=== PATIENT | female | born 1940 | race Asian ===

== ENCOUNTER 2016-04-18 00:55 | Inpatient (IN) | payer OTHER, MEDICAID ==
[~2016-04-18] VITALS: Ht 154.9 cm; Wt 55.1 kg
[~2016-04-18 00:55] MED LIST: AMLO2.5T2 PO; AUD NEB; BACID PO; CARV6.2534 PO; INSLAN SQ; INSNOV SQ; IPRNEB IH; MYCO500T PO; PRED5 PO; SIMV20TA6 PO; TACR1CAP PO
[2016-04-18] MEDS ORDERED: FAMO20 PO (01:04)
[2016-04-18] MEDS ORDERED: CALC600T95 PO (01:04)
[2016-04-18] MEDS ORDERED: TAMS0.4C32 PO (01:04)
[2016-04-18] MEDS ORDERED: FURO20 PO (01:04)
[2016-04-18] MEDS ORDERED: TACR1 PO (01:04)
[2016-04-18] MEDS ORDERED: LORazepam 2 MG/ML VIAL IVP ONE (01:15)
[2016-04-18] MEDS ORDERED: LORazepam 2 MG/ML VIAL ONE (01:15)
[2016-04-18] MEDS ORDERED: SODIUM CHLORIDE 0.9% 1,000 ML IV ONE (01:30)
[2016-04-18] MEDS ORDERED: INSULIN REGULAR, HUMAN 100 UNITS/ML IVP ONE (01:30)
[2016-04-18 01:51] LABS: BASOPHILS # (AUTO) 0.03 K/uL (0.00-0.20); BASOPHILS % (AUTO) 0.5 % (0.0-2.0); EOSINOPHILS # (AUTO) 0.04 K/uL (0.00-0.70); EOSINOPHILS % (AUTO) 0.59 % (1.0-6.0); HEMATOCRIT 30.6 % (36-46); LYMPHOCYTES # (AUTO) 2.6 K/uL (1.0-4.8); LYMPHOCYTES % (AUTO) 43.4 % (22.0-44.0); MEAN CORPUSCULAR HEMOGLOBIN 25.3 pg (26.0-34.0); MEAN CORPUSCULAR HGB CONC 32.5 G/dL (31.0-37.0); MEAN CORPUSCULAR VOLUME 78 fL (80-100); MONOCYTES # (AUTO) 0.5 K/uL (0.1-1.0); MONOCYTES % (AUTO) 7.5 % (2.0-9.0); NEUTROPHILS # (AUTO) 2.9 K/uL (1.8-7.7); NEUTROPHILS % (AUTO) 48.1 % (40.0-70.0); PLATELET COUNT (AUTO) 122 K/uL (150-450); RED BLOOD CELL COUNT(AUTO) 3.94 MIL/uL (4.00-5.20); RED CELL DISTRIBUTION WIDTH 17.2 % (11.5-14.5)
[2016-04-18 01:52] LABS: PROTHROMBIN TIME 10.8 SEC (9.4-11.6)
[2016-04-18 01:57] LABS: BILIRUBIN,TOTAL 0.2 mg/dL (0.1-1.0); CALCIUM, TOTAL 7.8 mg/dL (8.8-10.5); CREATININE 1.98 mg/dL (0.60-1.30); POTASSIUM 3.7 mmol/L (3.5-5.1); TOTAL PROTEIN, SERUM 7.1 g/dL (6.4-8.2)
[2016-04-18] MEDS ORDERED: SODIUM CHLORIDE 0.9% 100 ML ONE (02:09)
[2016-04-18] MEDS ORDERED: IOVERSOL 350 MG/ML 100 ML VIAL ONE (02:09)
[2016-04-18] MEDS ORDERED: ONDANSETRON HCL 4 MG/2 ML VIAL IVP PRN ×2 (02:15→06:15)
[2016-04-18] MEDS ORDERED: ASPIRIN 325 MG TABLET PO ONE (02:15)
[2016-04-18] MEDS ORDERED: ALTEPLASE IV ONE ×2 (02:30)
[2016-04-18] MEDS ORDERED: WATER FOR INJECTION STERILE IV ONE ×2 (02:30)
[2016-04-18 03:06] LABS: GLUCOSE,POINT OF CARE 129 MG/DL (70-110)
[2016-04-18 04:00] VITALS: BP 141/56
[2016-04-18] MEDS ORDERED: 0.9% SODIUM CHLORIDE 10 ML SYRINGE IVP PRN (06:15)
[2016-04-18] MEDS ORDERED: NITROPRUSSIDE SODIUM 50 MG in DEXTROSE 5%-WATER 248 ML IV PRN ×4 (06:39)
[2016-04-18] MEDS ORDERED: LABETALOL HCL 5 MG/ML 20 ML VIAL IVP PRN ×3 (06:45→09:30)
[2016-04-18 08:00] VITALS: BP 169/80
[2016-04-18] MEDS: TAMSULOSIN HCL 0.4 MG CAPSULE PO SCH (09:00)
[2016-04-18] MEDS: AmLODIPine BESYLATE 10 MG TABLET PO SCH (09:00)
[2016-04-18] MEDS ORDERED: PredniSONE 5 MG TABLET PO SCH (09:00)
[2016-04-18] MEDS: DOCUSATE SODIUM 100 MG CAPSULE PO SCH ×2 (09:00→20:16)
[2016-04-18] MEDS: LACTOBAC ACID/BULG/BIFID/THERM TABLET PO SCH (09:00)
[2016-04-18] MEDS ORDERED: TACROLIMUS ANHYDROUS 1 MG CAPSULE PO SCH ×2 (09:00)
[2016-04-18] MEDS: TACROLIMUS ANHYDROUS 1 MG CAPSULE PO SCH ×2 (09:45→20:16)
[2016-04-18] MEDS: MethylPREDNISolone SOD SUCC 40 MG/ML VIAL IVP SCH ×2 (10:43→21:46)
[2016-04-18] MEDS: PANTOPRAZOLE SODIUM 40 MG/VIAL IVP SCH (10:43)
[2016-04-18] MEDS ORDERED: AMLO-512 PO (10:49)
[2016-04-18] MEDS: LORazepam 2 MG/ML VIAL IVP PRN (11:21)
[2016-04-18 11:28] LABS: CHOL/HDL RATIO 1.6 (3.9-5.7); THYROID STIMULATING HORMONE 0.89 uIU/mL (0.36-3.74)
[2016-04-18 12:15] VITALS: BP 131/67
[2016-04-18] MEDS: INSULIN ASPART 100 UNITS/ML SQ PRN ×2 (12:38→18:18)
[2016-04-18] MEDS ORDERED: ACETAMINOPHEN 650 MG RECTAL SUPPOSITORY PR PRN (14:00)
[2016-04-18 14:37] LABS: GLUCOSE,POINT OF CARE 220 MG/DL (70-110)
[2016-04-18 14:37] LABS: GLUCOSE,POINT OF CARE 80 MG/DL (70-110)
[2016-04-18 14:37] LABS: GLUCOSE,POINT OF CARE 267 MG/DL (70-110)
[2016-04-18] MEDS: SODIUM CHLORIDE 0.45% 1,000 ML IV SCH (15:24)
[2016-04-18 16:00] VITALS: BP 153/62
[2016-04-18 16:52] LABS: APPEARANCE,URINE CLOUDY (CLEAR); GLUCOSE, URINE (UA) 100 mg/dL (NEGATIVE); KETONES,URINE NEGATIVE (NEGATIVE); LEUKOCYTE ESTERASE ,URINE NEGATIVE (NEGATIVE); OCCULT BLOOD,URINE MODERATE (NEGATIVE); PH,URINE 7.5 (5.0-8.0); PROTEIN,URINE SEE CONFIRM (NEGATIVE)
[2016-04-18 17:01] LABS: SULFOSALICYLIC ACID,URINE 3+ (Negative)
[2016-04-18 17:02] LABS: SQUAMOUS EPITHELIAL CELL,UR Few /LPF (None Seen)
[2016-04-18 20:00] VITALS: BP 133/59
[2016-04-18] MEDS: SIMVASTATIN 20 MG TABLET PO SCH (20:16)
[2016-04-18 20:26] LABS: GLUCOSE,POINT OF CARE 228 MG/DL (70-110)
[2016-04-18] MEDS: INSULIN DETEMIR 100 UNITS/ML SQ SCH ×2 (21:00→22:48)
[2016-04-19] VITALS: BP 146/55
[2016-04-19] MEDS: ACETAMINOPHEN 325 MG TABLET PO PRN ×3 (00:22→17:38)
[2016-04-19] MEDS: INSULIN ASPART 100 UNITS/ML SQ PRN ×3 (00:52→17:39)
[2016-04-19 03:02] LABS: GLUCOSE COMMENT 1 Received Meds; GLUCOSE,POINT OF CARE 209 MG/DL (70-110)
[2016-04-19 03:02] LABS: GLUCOSE,POINT OF CARE 188 MG/DL (70-110)
[2016-04-19 04:00] VITALS: BP 151/56
[2016-04-19 05:22] LABS: CALCIUM, TOTAL 8.8 mg/dL (8.8-10.5); CREATININE 1.68 mg/dL (0.60-1.30); POTASSIUM 4.3 mmol/L (3.5-5.1)
[2016-04-19 06:09] LABS: EOSINOPHILS % (AUTO) 0 % (1.0-6.0); HEMATOCRIT 35.6 % (36-46); HEMOGLOBIN 11.3 g/dL (12.0-16.0); LYMPHOCYTES # (AUTO) 1.9 K/uL (1.0-4.8); LYMPHOCYTES % (AUTO) 18.7 % (22.0-44.0); MEAN CORPUSCULAR HGB CONC 31.7 G/dL (31.0-37.0); MEAN CORPUSCULAR VOLUME 79 fL (80-100); MONOCYTES # (AUTO) 0.1 K/uL (0.1-1.0); MONOCYTES % (AUTO) 0.7 % (2.0-9.0); NEUTROPHILS % (AUTO) 80.6 % (40.0-70.0); PLATELET COUNT (AUTO) 146 K/uL (150-450); RED CELL DISTRIBUTION WIDTH 17.4 % (11.5-14.5)
[2016-04-19 08:00] VITALS: BP 150/47
[2016-04-19] MEDS: PANTOPRAZOLE SODIUM 40 MG/VIAL IVP SCH (09:22)
[2016-04-19] MEDS: MethylPREDNISolone SOD SUCC 40 MG/ML VIAL IVP SCH ×2 (09:23→20:35)
[2016-04-19] MEDS: DOCUSATE SODIUM 100 MG CAPSULE PO SCH ×2 (09:23→20:33)
[2016-04-19] MEDS: AmLODIPine BESYLATE 10 MG TABLET PO SCH (09:23)
[2016-04-19] MEDS: TAMSULOSIN HCL 0.4 MG CAPSULE PO SCH (09:23)
[2016-04-19] MEDS: TACROLIMUS ANHYDROUS 1 MG CAPSULE PO SCH ×2 (09:23→20:33)
[2016-04-19] MEDS: LACTOBAC ACID/BULG/BIFID/THERM TABLET PO SCH (09:23)
[2016-04-19 10:58] LABS: RBC MORPHOLOGY COMMENT ABNORMAL RBC MORPH
[2016-04-19] MEDS: SODIUM CHLORIDE 0.45% 1,000 ML IV SCH (11:47)
[2016-04-19 12:00] VITALS: BP 140/48
[2016-04-19 16:00] VITALS: BP 124/52
[2016-04-19 19:27] LABS: GLUCOSE COMMENT 1 Received Meds; GLUCOSE,POINT OF CARE 146 MG/DL (70-110)
[2016-04-19 19:27] LABS: GLUCOSE,POINT OF CARE 113 MG/DL (70-110)
[2016-04-19 20:00] VITALS: BP 131/59
[2016-04-19] MEDS: SIMVASTATIN 20 MG TABLET PO SCH (20:35)
[2016-04-19] MEDS: INSULIN DETEMIR 100 UNITS/ML SQ SCH (20:38)
[2016-04-19] MEDS ORDERED: LORazepam 2 MG/ML VIAL IVP ONE (21:30)
[2016-04-20] VITALS: BP 109/74
[2016-04-20 04:00] VITALS: BP 112/70
[2016-04-20 05:58] LABS: EOSINOPHILS % (AUTO) 0.1 % (1.0-6.0); HEMATOCRIT 36.2 % (36-46); HEMOGLOBIN 11.4 g/dL (12.0-16.0); LYMPHOCYTES # (AUTO) 1.6 K/uL (1.0-4.8); MEAN CORPUSCULAR HEMOGLOBIN 25.2 pg (26.0-34.0); MEAN CORPUSCULAR HGB CONC 31.7 G/dL (31.0-37.0); MEAN CORPUSCULAR VOLUME 80 fL (80-100); MONOCYTES # (AUTO) 0.2 K/uL (0.1-1.0); MONOCYTES % (AUTO) 2.6 % (2.0-9.0); NEUTROPHILS # (AUTO) 7.4 K/uL (1.8-7.7); NEUTROPHILS % (AUTO) 80.3 % (40.0-70.0); PLATELET COUNT (AUTO) 111 K/uL (150-450); RED BLOOD CELL COUNT(AUTO) 4.55 MIL/uL (4.00-5.20); RED CELL DISTRIBUTION WIDTH 17.4 % (11.5-14.5); WHITE BLOOD COUNT (AUTO) 9.2 K/uL (4.5-11.0)
[2016-04-20 06:43] LABS: RBC MORPHOLOGY COMMENT ABNORMAL RBC MORPH
[2016-04-20 06:47] LABS: GLUCOSE COMMENT 1 Received Meds; GLUCOSE,POINT OF CARE 130 MG/DL (70-110)
[2016-04-20 06:47] LABS: GLUCOSE COMMENT 1 Received Meds; GLUCOSE,POINT OF CARE 149 MG/DL (70-110)
[2016-04-20 06:55] LABS: CALCIUM, TOTAL 8.5 mg/dL (8.8-10.5); CREATININE 1.56 mg/dL (0.60-1.30); POTASSIUM 4.2 mmol/L (3.5-5.1)
[2016-04-20] MEDS: INSULIN ASPART 100 UNITS/ML SQ PRN ×3 (07:36→21:32)
[2016-04-20] MEDS: SODIUM CHLORIDE 0.45% 1,000 ML IV SCH (07:55)
[2016-04-20 08:00] VITALS: BP 92/71
[2016-04-20] MEDS: MethylPREDNISolone SOD SUCC 40 MG/ML VIAL IVP SCH ×2 (08:01→21:30)
[2016-04-20] MEDS: PANTOPRAZOLE SODIUM 40 MG/VIAL IVP SCH (08:01)
[2016-04-20] MEDS: LACTOBAC ACID/BULG/BIFID/THERM TABLET PO SCH (08:01)
[2016-04-20] MEDS: TAMSULOSIN HCL 0.4 MG CAPSULE PO SCH (08:01)
[2016-04-20] MEDS: TACROLIMUS ANHYDROUS 1 MG CAPSULE PO SCH ×2 (08:02→21:29)
[2016-04-20] MEDS: AmLODIPine BESYLATE 10 MG TABLET PO SCH (08:02)
[2016-04-20] MEDS: DOCUSATE SODIUM 100 MG CAPSULE PO SCH ×2 (08:02→21:29)
[2016-04-20] MEDS ORDERED: LORazepam 2 MG/ML VIAL IVP ONE (10:00)
[2016-04-20 12:00] VITALS: BP 119/63
[2016-04-20 16:00] VITALS: BP 96/59
[2016-04-20 17:02] LABS: GLUCOSE,POINT OF CARE 151 MG/DL (70-110)
[2016-04-20 18:27] LABS: GLUCOSE,POINT OF CARE 122 MG/DL (70-110)
[2016-04-20 20:00] VITALS: BP 138/69
[2016-04-20] MEDS: SIMVASTATIN 20 MG TABLET PO SCH (21:29)
[2016-04-20] MEDS: INSULIN DETEMIR 100 UNITS/ML SQ SCH (21:35)
[2016-04-21] VITALS (7 sets, daily range): BP systolic 95–123; BP diastolic 51–77
[2016-04-21] MEDS: SODIUM CHLORIDE 0.45% 1,000 ML IV SCH (05:00)
[2016-04-21] MEDS: INSULIN ASPART 100 UNITS/ML SQ PRN ×4 (06:01→20:27)
[2016-04-21 08:07] LABS: GLUCOSE COMMENT 1 Received Meds; GLUCOSE,POINT OF CARE 187 MG/DL (70-110)
[2016-04-21 08:07] LABS: GLUCOSE COMMENT 1 Received Meds; GLUCOSE,POINT OF CARE 254 MG/DL (70-110)
[2016-04-21] MEDS: PANTOPRAZOLE SODIUM 40 MG/VIAL IVP SCH (08:32)
[2016-04-21] MEDS: LACTOBAC ACID/BULG/BIFID/THERM TABLET PO SCH (08:32)
[2016-04-21] MEDS: TACROLIMUS ANHYDROUS 1 MG CAPSULE PO SCH ×2 (08:33→20:14)
[2016-04-21] MEDS: DOCUSATE SODIUM 100 MG CAPSULE PO SCH ×2 (08:33→20:14)
[2016-04-21] MEDS: TAMSULOSIN HCL 0.4 MG CAPSULE PO SCH (08:33)
[2016-04-21] MEDS: AmLODIPine BESYLATE 10 MG TABLET PO SCH (08:33)
[2016-04-21] MEDS: MethylPREDNISolone SOD SUCC 40 MG/ML VIAL IVP SCH ×2 (08:37→20:24)
[2016-04-21] MEDS: SIMVASTATIN 20 MG TABLET PO SCH (20:14)
[2016-04-21] MEDS: INSULIN DETEMIR 100 UNITS/ML SQ SCH (20:27)
[2016-04-21] MEDS ORDERED: LABETALOL HCL 5 MG/ML 20 ML VIAL IVP PRN (21:45)
[2016-04-22] MEDS: SODIUM CHLORIDE 0.45% 1,000 ML IV SCH (00:11)
[2016-04-22] MEDS: MAGNESIUM HYDROXIDE SUSPENSION 30 ML UDCUP PO PRN (04:38)
[2016-04-22 04:52] VITALS: BP 121/70
[2016-04-22] MEDS: INSULIN ASPART 100 UNITS/ML SQ PRN ×4 (05:53→20:50)
[2016-04-22 07:16] VITALS: BP 119/62
[2016-04-22] MEDS: PANTOPRAZOLE SODIUM 40 MG/VIAL IVP SCH (08:45)
[2016-04-22] MEDS: MethylPREDNISolone SOD SUCC 40 MG/ML VIAL IVP SCH ×2 (08:45→20:43)
[2016-04-22] MEDS: TAMSULOSIN HCL 0.4 MG CAPSULE PO SCH (08:46)
[2016-04-22] MEDS: AmLODIPine BESYLATE 10 MG TABLET PO SCH (08:46)
[2016-04-22] MEDS: TACROLIMUS ANHYDROUS 1 MG CAPSULE PO SCH ×2 (08:46→20:37)
[2016-04-22] MEDS: DOCUSATE SODIUM 100 MG CAPSULE PO SCH ×2 (08:46→20:37)
[2016-04-22 10:58] VITALS: BP 126/68
[2016-04-22] MEDS: LACTOBAC ACID/BULG/BIFID/THERM TABLET PO SCH (12:18)
[2016-04-22 15:30] VITALS: BP 131/69
[2016-04-22 17:33] LABS: GLUCOSE COMMENT 1 Received Meds; GLUCOSE,POINT OF CARE 196 MG/DL (70-110)
[2016-04-22] MEDS ORDERED: INSULIN ASPART 100 UNITS/ML SQ ONE (18:30)
[2016-04-22 19:04] VITALS: BP 115/60
[2016-04-22] MEDS: SIMVASTATIN 20 MG TABLET PO SCH (20:37)
[2016-04-22] MEDS: MUPIROCIN CALCIUM 2% 22 GM OINTMENT NASAL SCH (20:43)
[2016-04-22] MEDS: INSULIN DETEMIR 100 UNITS/ML SQ SCH (20:48)
[2016-04-22 23:28] VITALS: BP 128/69
[2016-04-23] MEDS: INSULIN ASPART 100 UNITS/ML SQ PRN ×2 (06:03→11:28)
[2016-04-23 06:17] VITALS: BP 129/68
[2016-04-23 07:25] VITALS: BP 145/74
[2016-04-23 07:42] LABS: GLUCOSE COMMENT 1 Received Meds; GLUCOSE,POINT OF CARE 288 MG/DL (70-110)
[2016-04-23] MEDS: TAMSULOSIN HCL 0.4 MG CAPSULE PO SCH (08:15)
[2016-04-23] MEDS: TACROLIMUS ANHYDROUS 1 MG CAPSULE PO SCH ×2 (08:15→19:59)
[2016-04-23] MEDS: DOCUSATE SODIUM 100 MG CAPSULE PO SCH ×2 (08:15→21:00)
[2016-04-23] MEDS: LACTOBAC ACID/BULG/BIFID/THERM TABLET PO SCH (08:15)
[2016-04-23] MEDS: MethylPREDNISolone SOD SUCC 40 MG/ML VIAL IVP SCH (08:15)
[2016-04-23] MEDS: AmLODIPine BESYLATE 10 MG TABLET PO SCH (08:15)
[2016-04-23] MEDS: PANTOPRAZOLE SODIUM 40 MG/VIAL IVP SCH (08:20)
[2016-04-23] MEDS: MUPIROCIN CALCIUM 2% 22 GM OINTMENT NASAL SCH ×2 (08:21→21:11)
[2016-04-23 08:57] LABS: GLUCOSE COMMENT 1 Received Meds; GLUCOSE,POINT OF CARE 359 MG/DL (70-110)
[2016-04-23 08:57] LABS: GLUCOSE COMMENT 1 Received Meds; GLUCOSE,POINT OF CARE 159 MG/DL (70-110)
[2016-04-23 11:26] VITALS: BP 132/70
[2016-04-23 15:17] VITALS: BP 116/59
[2016-04-23] MEDS ORDERED: INSULIN ASPART 100 UNITS/ML SQ PRN (17:30)
[2016-04-23] MEDS ORDERED: INSULIN ASPART 100 UNITS/ML SQ ONE ×2 (17:45→18:45)
[2016-04-23] MEDS: MAGNESIUM HYDROXIDE SUSPENSION 30 ML UDCUP PO PRN (18:22)
[2016-04-23 19:09] LABS: HEMOGLOBIN A1C 11.4 % (4.5-6.2)
[2016-04-23 19:22] LABS: THYROID STIMULATING HORMONE 1.76 uIU/mL (0.36-3.74)
[2016-04-23] MEDS: SIMVASTATIN 20 MG TABLET PO SCH (19:59)
[2016-04-23 20:53] VITALS: BP 137/70
[2016-04-23] MEDS: INSULIN DETEMIR 100 UNITS/ML SQ SCH (21:08)
[2016-04-23 23:24] VITALS: BP 112/52
[2016-04-24] VITALS (7 sets, daily range): BP systolic 105–157; BP diastolic 65–78
[2016-04-24] MEDS: DEXTROSE 50%-WATER 25 GM/50 ML SYRINGE IVP PRN (02:53)
[2016-04-24 07:33] LABS: GLUCOSE COMMENT 1 Repeated; GLUCOSE,POINT OF CARE 553 MG/DL (70-110)
[2016-04-24 07:33] LABS: GLUCOSE COMMENT 1 Repeated; GLUCOSE,POINT OF CARE 140 MG/DL (70-110)
[2016-04-24 07:33] LABS: GLUCOSE COMMENT 1 Received Meds; GLUCOSE,POINT OF CARE 392 MG/DL (70-110)
[2016-04-24 07:33] LABS: GLUCOSE COMMENT 1 Received Meds; GLUCOSE,POINT OF CARE 354 MG/DL (70-110)
[2016-04-24 07:52] LABS: CALCIUM, TOTAL 8.2 mg/dL (8.8-10.5); CREATININE 1.68 mg/dL (0.60-1.30); MAGNESIUM 3.4 mg/dL (1.80-2.40); POTASSIUM 4.6 mmol/L (3.5-5.1)
[2016-04-24] MEDS: MethylPREDNISolone SOD SUCC 40 MG/ML VIAL IVP SCH (08:14)
[2016-04-24] MEDS: ASPIRIN 81 MG EC TABLET PO SCH (08:14)
[2016-04-24] MEDS: LACTOBAC ACID/BULG/BIFID/THERM TABLET PO SCH (08:14)
[2016-04-24] MEDS: TACROLIMUS ANHYDROUS 1 MG CAPSULE PO SCH ×2 (08:15→21:39)
[2016-04-24] MEDS: TAMSULOSIN HCL 0.4 MG CAPSULE PO SCH (08:15)
[2016-04-24] MEDS: DOCUSATE SODIUM 100 MG CAPSULE PO SCH ×2 (08:15→21:39)
[2016-04-24] MEDS: MUPIROCIN CALCIUM 2% 22 GM OINTMENT NASAL SCH ×2 (08:15→21:40)
[2016-04-24] MEDS: PANTOPRAZOLE SODIUM 40 MG/VIAL IVP SCH (08:18)
[2016-04-24] MEDS: INSULIN DETEMIR 100 UNITS/ML SQ SCH ×2 (09:34→21:44)
[2016-04-24] MEDS: AmLODIPine BESYLATE 10 MG TABLET PO SCH (12:23)
[2016-04-24] MEDS: INSULIN ASPART 100 UNITS/ML SQ PRN ×3 (12:33→21:45)
[2016-04-24 20:12] LABS: GLUCOSE,POINT OF CARE 295 MG/DL (70-110)
[2016-04-24 20:12] LABS: GLUCOSE,POINT OF CARE 305 MG/DL (70-110)
[2016-04-24] MEDS: SIMVASTATIN 20 MG TABLET PO SCH (21:00)
[2016-04-24] MEDS: LORazepam 2 MG/ML VIAL IVP PRN (23:13)
[2016-04-25] VITALS (12 sets, daily range): BP systolic 115–149; BP diastolic 44–82
[2016-04-25] MEDS: LORazepam 2 MG/ML VIAL IVP PRN (05:27)
[2016-04-25 08:22] LABS: CALCIUM, TOTAL 8.4 mg/dL (8.8-10.5); CREATININE 1.55 mg/dL (0.60-1.30); MAGNESIUM 2.9 mg/dL (1.80-2.40); PHOSPHORUS 2.6 mg/dL (2.5-4.9); POTASSIUM 4.8 mmol/L (3.5-5.1)
[2016-04-25] MEDS: ASPIRIN 81 MG EC TABLET PO SCH (08:30)
[2016-04-25] MEDS: INSULIN DETEMIR 100 UNITS/ML SQ SCH ×2 (09:00→21:48)
[2016-04-25] MEDS: DOCUSATE SODIUM 100 MG CAPSULE PO SCH ×2 (09:00→21:20)
[2016-04-25] MEDS: DEXTROSE 50%-WATER 25 GM/50 ML SYRINGE IVP PRN (09:34)
[2016-04-25] MEDS: TACROLIMUS ANHYDROUS 1 MG CAPSULE PO SCH ×2 (09:39→21:20)
[2016-04-25] MEDS: LACTOBAC ACID/BULG/BIFID/THERM TABLET PO SCH (09:39)
[2016-04-25] MEDS: MethylPREDNISolone SOD SUCC 40 MG/ML VIAL IVP SCH (09:39)
[2016-04-25] MEDS: TAMSULOSIN HCL 0.4 MG CAPSULE PO SCH (09:40)
[2016-04-25] MEDS: PANTOPRAZOLE SODIUM 40 MG/VIAL IVP SCH (09:40)
[2016-04-25] MEDS: AmLODIPine BESYLATE 10 MG TABLET PO SCH (09:43)
[2016-04-25 11:06] LABS: GLUCOSE COMMENT 1 Doctor Notified; GLUCOSE,POINT OF CARE 299 MG/DL (70-110)
[2016-04-25 12:27] LABS: GLUCOSE COMMENT 1 Received Meds; GLUCOSE,POINT OF CARE 118 MG/DL (70-110)
[2016-04-25 13:13] LABS: GLUCOSE,POINT OF CARE 111 MG/DL (70-110)
[2016-04-25] MEDS: MUPIROCIN CALCIUM 2% 22 GM OINTMENT NASAL SCH ×2 (14:36→21:38)
[2016-04-25] MEDS: DEXTROSE 5%-0.45% SODIUM CHL 1,000 ML IV SCH (14:36)
[2016-04-25] MEDS: PredniSONE 5 MG TABLET PO SCH (15:07)
[2016-04-25] MEDS: INSULIN ASPART 100 UNITS/ML SQ PRN ×2 (18:09→21:49)
[2016-04-25 18:12] LABS: GLUCOSE COMMENT 1 Received Meds; GLUCOSE,POINT OF CARE 239 MG/DL (70-110)
[2016-04-25 21:02] LABS: GLUCOSE COMMENT 1 Received Meds; GLUCOSE,POINT OF CARE 300 MG/DL (70-110)
[2016-04-25] MEDS: SIMVASTATIN 20 MG TABLET PO SCH (21:20)
[2016-04-26 03:35] VITALS: BP 136/67
[2016-04-26 05:48] LABS: GLUCOSE COMMENT 1 Juice/Food/D50 Given; GLUCOSE,POINT OF CARE 91 MG/DL (70-110)
[2016-04-26] MEDS: INSULIN ASPART 100 UNITS/ML SQ PRN ×3 (06:21→17:47)
[2016-04-26 06:59] LABS: BASOPHILS % (AUTO) 0.1 % (0.0-2.0); EOSINOPHILS % (AUTO) 0.7 % (1.0-6.0); HEMATOCRIT 34.1 % (36-46); HEMOGLOBIN 10.8 g/dL (12.0-16.0); LYMPHOCYTES # (AUTO) 1.4 K/uL (1.0-4.8); LYMPHOCYTES % (AUTO) 10.9 % (22.0-44.0); MEAN CORPUSCULAR HEMOGLOBIN 25.5 pg (26.0-34.0); MEAN CORPUSCULAR HGB CONC 31.6 G/dL (31.0-37.0); MEAN CORPUSCULAR VOLUME 81 fL (80-100); MONOCYTES # (AUTO) 0.6 K/uL (0.1-1.0); NEUTROPHILS # (AUTO) 10.4 K/uL (1.8-7.7); NEUTROPHILS % (AUTO) 83.3 % (40.0-70.0); PLATELET COUNT (AUTO) 145 K/uL (150-450); RED BLOOD CELL COUNT(AUTO) 4.22 MIL/uL (4.00-5.20); RED CELL DISTRIBUTION WIDTH 17.2 % (11.5-14.5); WHITE BLOOD COUNT (AUTO) 12.5 K/uL (4.5-11.0)
[2016-04-26 07:07] LABS: CREATININE 1.54 mg/dL (0.60-1.30); PHOSPHORUS 3.4 mg/dL (2.5-4.9); POTASSIUM 5.6 mmol/L (3.5-5.1)
[2016-04-26 08:03] VITALS: BP 115/42
[2016-04-26] MEDS: DOCUSATE SODIUM 100 MG CAPSULE PO SCH (09:00)
[2016-04-26] MEDS ORDERED: ASPIRIN 81 MG CHEWABLE TABLET PO SCH (09:00)
[2016-04-26] MEDS ORDERED: SODIUM POLYSTYRENE SULFONATE 15 GM/60 ML SUSPENSION BOTTLE PO ONE (09:15)
[2016-04-26] MEDS: PANTOPRAZOLE SODIUM 40 MG/VIAL IVP SCH (09:37)
[2016-04-26] MEDS: LACTOBAC ACID/BULG/BIFID/THERM TABLET PO SCH (09:37)
[2016-04-26] MEDS: AmLODIPine BESYLATE 10 MG TABLET PO SCH (09:38)
[2016-04-26] MEDS: TAMSULOSIN HCL 0.4 MG CAPSULE PO SCH (09:38)
[2016-04-26] MEDS: PredniSONE 5 MG TABLET PO SCH (09:38)
[2016-04-26] MEDS: TACROLIMUS ANHYDROUS 1 MG CAPSULE PO SCH (09:38)
[2016-04-26] MEDS: INSULIN DETEMIR 100 UNITS/ML SQ SCH (09:40)
[2016-04-26] MEDS: MUPIROCIN CALCIUM 2% 22 GM OINTMENT NASAL SCH (09:40)
[2016-04-26 11:36] VITALS: BP 108/57
[2016-04-26 13:37] LABS: RBC MORPHOLOGY COMMENT ABNORMAL RBC MORPH
[2016-04-26] MEDS: DEXTROSE 5%-0.45% SODIUM CHL 1,000 ML IV SCH (14:15)
[2016-04-26 15:41] LABS: GLUCOSE COMMENT 1 Received Meds; GLUCOSE,POINT OF CARE 207 MG/DL (70-110)
[2016-04-26 16:07] LABS: GLUCOSE COMMENT 1 Received Meds; GLUCOSE,POINT OF CARE 315 MG/DL (70-110)
[2016-04-26 16:12] VITALS: BP 117/66
[2016-04-26] MEDS ORDERED: INSU100V12 SQ (17:01)
[2016-04-26] MEDS ORDERED: INSULIN DETEMIR 100 UNITS/ML SQ SCH (21:00)
[2016-04-27 02:42] LABS: GLUCOSE COMMENT 1 Received Meds; GLUCOSE,POINT OF CARE 330 MG/DL (70-110)
[2016-04-28 11:48] LABS: GLUCOSE COMMENT 1 Received Meds; GLUCOSE,POINT OF CARE 300 MG/DL (70-110)
[2016-04-28 11:48] LABS: GLUCOSE COMMENT 1 Received Meds; GLUCOSE,POINT OF CARE 208 MG/DL (70-110)
[2016-04-28 11:49] LABS: GLUCOSE COMMENT 1 Received Meds; GLUCOSE,POINT OF CARE 261 MG/DL (70-110)
[2016-04-28 11:49] LABS: GLUCOSE COMMENT 1 Doctor Notified; GLUCOSE,POINT OF CARE 411 MG/DL (70-110)
[2016-04-28 11:52] LABS: GLUCOSE COMMENT 1 Received Meds; GLUCOSE,POINT OF CARE 221 MG/DL (70-110)
[2016-04-28 11:52] LABS: GLUCOSE COMMENT 1 Repeated; GLUCOSE,POINT OF CARE 21 MG/DL (70-110)
[2016-04-28 11:52] LABS: GLUCOSE COMMENT 1 Received Meds; GLUCOSE,POINT OF CARE 184 MG/DL (70-110)
[2016-04-28 11:52] LABS: GLUCOSE COMMENT 1 Repeated; GLUCOSE,POINT OF CARE 168 MG/DL (70-110)
[2016-04-28 11:52] LABS: GLUCOSE,POINT OF CARE 501 MG/DL (70-110)
[2016-04-29 19:37] LABS: GLUCOSE COMMENT 1 Received Meds; GLUCOSE,POINT OF CARE 256 MG/DL (70-110)
[2016-04-29 19:37] LABS: GLUCOSE COMMENT 1 Doctor Notified; GLUCOSE,POINT OF CARE 459 MG/DL (70-110)
[2016-08-05] MEDS ORDERED: LEVO500 PO (11:04)
== END 2016-04-26 18:20 | DRG 61 ==
LOC: EMS 00:56 → ICU 02:45 → 5N 04-21 10:30 → 5S 04-25 04:25
PROVIDERS: ADMIT Internal Medicine; ATTEND Internal Medicine
PROC: 3E03317 Introduction of Other Thrombolytic into Peripheral Vein, Percutaneous Approach (ICD-10-PCS; principal; 2016-04-18)
PROC: 4A10X4Z Monitoring of Central Nervous Electrical Activity, External Approach (ICD-10-PCS; 2016-04-19)
DX: I63.512 Cerebral infarction due to unspecified occlusion or stenosis of left middle cerebral artery (principal); E43 Unspecified severe protein-calorie malnutrition; G93.41 Metabolic encephalopathy; N18.6 End stage renal disease; G81.91 Hemiplegia, unspecified affecting right dominant side; I12.0 Hypertensive chronic kidney disease with stage 5 chronic kidney disease or end stage renal disease; N17.9 Acute kidney failure, unspecified; Z94.0 Kidney transplant status; E11.65 Type 2 diabetes mellitus with hyperglycemia; E78.00 Pure hypercholesterolemia, unspecified; E11.22 Type 2 diabetes mellitus with diabetic chronic kidney disease; D64.9 Anemia, unspecified; E11.21 Type 2 diabetes mellitus with diabetic nephropathy; E78.5 Hyperlipidemia, unspecified; R29.810 Facial weakness; E87.5 Hyperkalemia; Z79.899 Other long term (current) drug therapy; Z88.8 Allergy status to other drugs, medicaments and biological substances; Z79.4 Long term (current) use of insulin; Z91.018 Allergy to other foods; Z68.23 Body mass index [BMI] 23.0-23.9, adult; Z78.1 Physical restraint status
CPT/HCPCS: 70496; 70551; 80197; 82607; 82746; 82962; 83036; 83735; 84100; 84443; 87040; 87081; 92507; 92610; 93005; 93306; 93880; 95816; 96365; 96375; 97116; 97162; 97167; 97530; 97535; 99291; C9113; J1815; J2060; J2920; J2997; J7030; J7050; J7507

== ENCOUNTER 2016-04-26 18:30 | Inpatient (IN) | payer OTHER, MEDICAID ==
[~2016-04-26] VITALS: Ht 157.5 cm; Wt 48.5 kg
[~2016-04-26 18:30] MED LIST changes: +AMLO-512 PO; -AMLO2.5T2 PO; -AUD NEB; +CALC600T95 PO; -CARV6.2534 PO; +FAMO20 PO; +FURO20 PO; +INSU100V12 SQ; -IPRNEB IH; -MYCO500T PO; +TACR1 PO; -TACR1CAP PO; +TAMS0.4C32 PO
[2016-04-26 20:00] VITALS: BP 117/66
[2016-04-26 23:07] LABS: GLUCOSE,POINT OF CARE 292 MG/DL (70-110)
[2016-04-26] MEDS ORDERED: DEXTROSE 50%-WATER 25 GM/50 ML SYRINGE IVP PRN (23:30)
[2016-04-26] MEDS: INSULIN ASPART 100 UNITS/ML SQ PRN (23:40)
[2016-04-27] VITALS (8 sets, daily range): BP systolic 86–156; BP diastolic 47–81
[2016-04-27 06:21] LABS: GLUCOSE,POINT OF CARE 121 MG/DL (70-110)
[2016-04-27] MEDS: FAMOTIDINE 20 MG TABLET PO SCH (06:31)
[2016-04-27 06:46] LABS: BASOPHILS # (AUTO) 0.01 K/uL (0.00-0.20); BASOPHILS % (AUTO) 0.1 % (0.0-2.0); EOSINOPHILS # (AUTO) 0.12 K/uL (0.00-0.70); HEMATOCRIT 33.4 % (36-46); HEMOGLOBIN 10.7 g/dL (12.0-16.0); LYMPHOCYTES # (AUTO) 1.9 K/uL (1.0-4.8); LYMPHOCYTES % (AUTO) 19.7 % (22.0-44.0); MEAN CORPUSCULAR HEMOGLOBIN 25.7 pg (26.0-34.0); MEAN CORPUSCULAR HGB CONC 32.2 G/dL (31.0-37.0); MEAN CORPUSCULAR VOLUME 80 fL (80-100); MONOCYTES # (AUTO) 0.9 K/uL (0.1-1.0); MONOCYTES % (AUTO) 9.2 % (2.0-9.0); NEUTROPHILS # (AUTO) 6.6 K/uL (1.8-7.7); NEUTROPHILS % (AUTO) 69.6 % (40.0-70.0); PLATELET COUNT (AUTO) 138 K/uL (150-450); RED BLOOD CELL COUNT(AUTO) 4.17 MIL/uL (4.00-5.20); RED CELL DISTRIBUTION WIDTH 18.1 % (11.5-14.5); WHITE BLOOD COUNT (AUTO) 9.5 K/uL (4.5-11.0)
[2016-04-27 06:52] LABS: RBC MORPHOLOGY COMMENT ABNORMAL RBC MORPH
[2016-04-27 07:41] LABS: ALBUMIN 2.5 g/dL (3.4-5.0); BILIRUBIN,TOTAL 0.3 mg/dL (0.1-1.0); CALCIUM, TOTAL 7.7 mg/dL (8.8-10.5); CREATININE 1.41 mg/dL (0.60-1.30); POTASSIUM 4.6 mmol/L (3.5-5.1); TOTAL PROTEIN, SERUM 6.3 g/dL (6.4-8.2)
[2016-04-27] MEDS: TACROLIMUS ANHYDROUS 1 MG CAPSULE PO SCH ×2 (08:18→21:21)
[2016-04-27] MEDS: CALCIUM CARBONATE 500 MG CHEWABLE TABLET CHEW SCH ×2 (08:18→21:21)
[2016-04-27] MEDS: LACTOBAC ACID/BULG/BIFID/THERM TABLET PO SCH (08:18)
[2016-04-27] MEDS: FUROSEMIDE 20 MG TABLET PO SCH (08:18)
[2016-04-27] MEDS: PredniSONE 5 MG TABLET PO SCH (08:18)
[2016-04-27] MEDS: DOCUSATE SODIUM 100 MG CAPSULE PO SCH ×2 (08:20→21:21)
[2016-04-27] MEDS ORDERED: TAMSULOSIN HCL 0.4 MG CAPSULE PO SCH (09:00)
[2016-04-27] MEDS ORDERED: INSULIN DETEMIR 100 UNITS/ML SQ SCH ×2 (09:00→21:00)
[2016-04-27] MEDS ORDERED: TACROLIMUS ANHYDROUS 1 MG CAPSULE PO SCH (09:00)
[2016-04-27] MEDS ORDERED: AmLODIPine BESYLATE 10 MG TABLET PO SCH (09:00)
[2016-04-27] MEDS ORDERED: CALCIUM CARBONATE 500 MG CHEWABLE TABLET CHEW SCH (09:00)
[2016-04-27] MEDS: ACETAMINOPHEN 325 MG TABLET PO PRN (10:41)
[2016-04-27 11:28] LABS: APPEARANCE,URINE CLOUDY (CLEAR); GLUCOSE, URINE (UA) 250 mg/dL (NEGATIVE); OCCULT BLOOD,URINE MODERATE (NEGATIVE); PH,URINE 7.5 (5.0-8.0); PROTEIN,URINE POS 1+ (NEGATIVE)
[2016-04-27 11:29] LABS: KETONES,URINE NEGATIVE (NEGATIVE); LEUKOCYTE ESTERASE ,URINE LARGE (NEGATIVE)
[2016-04-27 11:30] LABS: ADD UA MICROSCOPIC YES
[2016-04-27 11:31] LABS: GLUCOSE COMMENT 1 Received Meds; GLUCOSE,POINT OF CARE 224 MG/DL (70-110)
[2016-04-27 11:32] LABS: SQUAMOUS EPITHELIAL CELL,UR Many /LPF (None Seen)
[2016-04-27] MEDS: INSULIN ASPART 100 UNITS/ML SQ PRN (12:30)
[2016-04-27] MEDS ORDERED: SODIUM CHLORIDE 0.9% 250 ML IV ONE (15:30)
[2016-04-27 18:32] LABS: GLUCOSE,POINT OF CARE 109 MG/DL (70-110)
[2016-04-27] MEDS: SENNA 187 MG TABLET PO SCH (21:21)
[2016-04-27] MEDS: SIMVASTATIN 20 MG TABLET PO SCH (21:21)
[2016-04-27] MEDS: HEPARIN SODIUM,PORCINE 5,000 UNITS/ML VIAL SQ SCH (21:22)
[2016-04-27] MEDS ORDERED: INSULIN ASPART 100 UNITS/ML SQ PRN (21:45)
[2016-04-27] MEDS ORDERED: DEXTROSE 50%-WATER 25 GM/50 ML SYRINGE IVP PRN ×2 (21:45→22:00)
[2016-04-27] MEDS ORDERED: INSULIN ASPART 100 UNITS/ML SQ ONE (22:00)
[2016-04-27 22:07] LABS: GLUCOSE COMMENT 1 Doctor Notified; GLUCOSE,POINT OF CARE 441 MG/DL (70-110)
[2016-04-27 23:06] LABS: GLUCOSE,POINT OF CARE 301 MG/DL (70-110)
[2016-04-28] VITALS (7 sets, daily range): BP systolic 119–150; BP diastolic 57–68
[2016-04-28] MEDS: ACETAMINOPHEN 325 MG TABLET PO PRN (00:41)
[2016-04-28] MEDS: FAMOTIDINE 20 MG TABLET PO SCH (06:25)
[2016-04-28 06:36] LABS: GLUCOSE COMMENT 1 Juice/Food/D50 Given; GLUCOSE,POINT OF CARE 36 MG/DL (70-110)
[2016-04-28 06:37] LABS: GLUCOSE COMMENT 1 Juice/Food/D50 Given; GLUCOSE,POINT OF CARE 171 MG/DL (70-110)
[2016-04-28] MEDS ORDERED: DEXTROSE 50%-WATER 25 GM/50 ML SYRINGE IVP PRN (06:45)
[2016-04-28] MEDS: CALCIUM CARBONATE 500 MG CHEWABLE TABLET CHEW SCH ×2 (08:13→20:30)
[2016-04-28] MEDS: FUROSEMIDE 20 MG TABLET PO SCH (08:14)
[2016-04-28] MEDS: HEPARIN SODIUM,PORCINE 5,000 UNITS/ML VIAL SQ SCH ×2 (08:14→20:28)
[2016-04-28] MEDS: DOCUSATE SODIUM 100 MG CAPSULE PO SCH ×2 (08:14→20:34)
[2016-04-28] MEDS: PredniSONE 5 MG TABLET PO SCH (08:14)
[2016-04-28] MEDS: LACTOBAC ACID/BULG/BIFID/THERM TABLET PO SCH (08:14)
[2016-04-28] MEDS: TACROLIMUS ANHYDROUS 1 MG CAPSULE PO SCH ×2 (08:17→20:30)
[2016-04-28 08:20] LABS: CALCIUM, TOTAL 7.6 mg/dL (8.8-10.5); CREATININE 1.73 mg/dL (0.60-1.30); MAGNESIUM 2.2 mg/dL (1.80-2.40); PHOSPHORUS 3.5 mg/dL (2.5-4.9); POTASSIUM 3.6 mmol/L (3.5-5.1)
[2016-04-28] MEDS: INSULIN DETEMIR 100 UNITS/ML SQ SCH ×2 (08:32→21:25)
[2016-04-28] MEDS ORDERED: CefTRIAXone 1 GM/DEXTROSE 50 ML IV SCH (09:00)
[2016-04-28] MEDS ORDERED: AmLODIPine BESYLATE 10 MG TABLET PO SCH (12:00)
[2016-04-28 12:03] LABS: GLUCOSE,POINT OF CARE 156 MG/DL (70-110)
[2016-04-28 17:36] LABS: GLUCOSE,POINT OF CARE 248 MG/DL (70-110)
[2016-04-28] MEDS: INSULIN ASPART 100 UNITS/ML SQ PRN ×2 (18:28→21:29)
[2016-04-28] MEDS: CefTRIAXone 1 GM/DEXTROSE 50 ML IV SCH (18:35)
[2016-04-28] MEDS ORDERED: SODIUM CHLORIDE 0.9% 250 ML IV ONE (18:43)
[2016-04-28] MEDS: SIMVASTATIN 20 MG TABLET PO SCH (20:28)
[2016-04-28] MEDS: SENNA 187 MG TABLET PO SCH (20:28)
[2016-04-28] MEDS: TAMSULOSIN HCL 0.4 MG CAPSULE PO SCH (20:29)
[2016-04-28 21:57] LABS: GLUCOSE,POINT OF CARE 219 MG/DL (70-110)
[2016-04-29 00:54] VITALS: BP 158/69
[2016-04-29] MEDS: ACETAMINOPHEN 325 MG TABLET PO PRN ×2 (01:52→23:23)
[2016-04-29 05:00] VITALS: BP 116/57
[2016-04-29 05:56] LABS: GLUCOSE,POINT OF CARE 162 MG/DL (70-110)
[2016-04-29] MEDS: FAMOTIDINE 20 MG TABLET PO SCH (06:06)
[2016-04-29 07:26] VITALS: BP 100/60
[2016-04-29] MEDS: LACTOBAC ACID/BULG/BIFID/THERM TABLET PO SCH (07:59)
[2016-04-29] MEDS: DOCUSATE SODIUM 100 MG CAPSULE PO SCH (07:59)
[2016-04-29] MEDS: PredniSONE 5 MG TABLET PO SCH (07:59)
[2016-04-29] MEDS: TACROLIMUS ANHYDROUS 1 MG CAPSULE PO SCH ×2 (07:59→20:58)
[2016-04-29] MEDS: HEPARIN SODIUM,PORCINE 5,000 UNITS/ML VIAL SQ SCH ×2 (07:59→20:58)
[2016-04-29] MEDS: CALCIUM CARBONATE 500 MG CHEWABLE TABLET CHEW SCH ×2 (07:59→20:59)
[2016-04-29] MEDS: INSULIN DETEMIR 100 UNITS/ML SQ SCH ×2 (08:04→21:03)
[2016-04-29 09:07] LABS: CREATININE 1.58 mg/dL (0.60-1.30); PHOSPHORUS 3.6 mg/dL (2.5-4.9); POTASSIUM 3.9 mmol/L (3.5-5.1)
[2016-04-29 13:22] LABS: GLUCOSE,POINT OF CARE 80 MG/DL (70-110)
[2016-04-29] MEDS ORDERED: METOCLOPRAMIDE HCL 5 MG TABLET PO PRN (14:15)
[2016-04-29] MEDS: SODIUM CHLORIDE 0.9% 1,000 ML IV SCH (15:16)
[2016-04-29 15:38] VITALS: BP 141/72
[2016-04-29] MEDS: BETHANECHOL CHLORIDE 25 MG TABLET PO SCH ×2 (16:06→20:59)
[2016-04-29] MEDS: CefTRIAXone 1 GM/DEXTROSE 50 ML IV SCH (17:01)
[2016-04-29 18:01] LABS: GLUCOSE COMMENT 1 Received Meds; GLUCOSE,POINT OF CARE 159 MG/DL (70-110)
[2016-04-29] MEDS: INSULIN ASPART 100 UNITS/ML SQ PRN ×2 (18:32→21:04)
[2016-04-29] MEDS: SIMVASTATIN 20 MG TABLET PO SCH (20:59)
[2016-04-29] MEDS: TAMSULOSIN HCL 0.4 MG CAPSULE PO SCH (20:59)
[2016-04-29] MEDS: SENNA 187 MG TABLET PO SCH (20:59)
[2016-04-29] MEDS: DOCUSATE SODIUM 250 MG CAPSULE PO SCH (20:59)
[2016-04-29 21:11] LABS: GLUCOSE COMMENT 1 Received Meds; GLUCOSE,POINT OF CARE 343 MG/DL (70-110)
[2016-04-29] MEDS: 0.9% SODIUM CHLORIDE 10 ML SYRINGE IVP SCH (23:22)
[2016-04-30] VITALS: BP 122/64
[2016-04-30] MEDS: DOCUSATE SODIUM 283 MG/5 ML MINI-ENEMA PR PRN (04:56)
[2016-04-30 05:32] LABS: GLUCOSE,POINT OF CARE 122 MG/DL (70-110)
[2016-04-30] MEDS: FAMOTIDINE 20 MG TABLET PO SCH (06:02)
[2016-04-30 07:20] VITALS: BP 130/64
[2016-04-30 07:20] LABS: CALCIUM, TOTAL 8.1 mg/dL (8.8-10.5); CREATININE 1.47 mg/dL (0.60-1.30); MAGNESIUM 2.2 mg/dL (1.80-2.40); PHOSPHORUS 4.1 mg/dL (2.5-4.9)
[2016-04-30] MEDS: CALCIUM CARBONATE 500 MG CHEWABLE TABLET CHEW SCH ×2 (08:11→20:07)
[2016-04-30] MEDS: TACROLIMUS ANHYDROUS 1 MG CAPSULE PO SCH ×2 (08:11→20:08)
[2016-04-30] MEDS: LACTOBAC ACID/BULG/BIFID/THERM TABLET PO SCH (08:11)
[2016-04-30] MEDS: PredniSONE 5 MG TABLET PO SCH (08:11)
[2016-04-30] MEDS: BETHANECHOL CHLORIDE 25 MG TABLET PO SCH ×3 (08:11→20:08)
[2016-04-30] MEDS: HEPARIN SODIUM,PORCINE 5,000 UNITS/ML VIAL SQ SCH ×2 (08:12→20:08)
[2016-04-30] MEDS: DOCUSATE SODIUM 250 MG CAPSULE PO SCH ×2 (08:12→20:07)
[2016-04-30] MEDS: INSULIN DETEMIR 100 UNITS/ML SQ SCH ×2 (08:17→20:10)
[2016-04-30] MEDS: SODIUM CHLORIDE 0.9% 1,000 ML IV SCH (09:49)
[2016-04-30] MEDS: 0.9% SODIUM CHLORIDE 10 ML SYRINGE IVP SCH ×3 (09:49→23:13)
[2016-04-30] MEDS ORDERED: INSLAN SQ (10:31)
[2016-04-30 12:12] LABS: GLUCOSE,POINT OF CARE 265 MG/DL (70-110)
[2016-04-30] MEDS: INSULIN ASPART 100 UNITS/ML SQ PRN ×2 (12:16→20:11)
[2016-04-30 15:26] VITALS: BP 143/63
[2016-04-30 17:01] LABS: GLUCOSE COMMENT 1 Received Meds; GLUCOSE,POINT OF CARE 169 MG/DL (70-110)
[2016-04-30] MEDS: CHOLECALCIFEROL (VIT D3) 1,000 UNITS TABLET PO SCH (17:46)
[2016-04-30] MEDS ORDERED: SODIUM CHLORIDE 0.9% 250 ML IV ONE (18:38)
[2016-04-30] MEDS: CefTRIAXone 1 GM/DEXTROSE 50 ML IV SCH (18:46)
[2016-04-30] MEDS: TAMSULOSIN HCL 0.4 MG CAPSULE PO SCH (20:08)
[2016-04-30] MEDS: SIMVASTATIN 20 MG TABLET PO SCH (20:08)
[2016-04-30] MEDS: SENNA 187 MG TABLET PO SCH (20:08)
[2016-04-30 21:57] LABS: GLUCOSE COMMENT 1 Received Meds; GLUCOSE,POINT OF CARE 218 MG/DL (70-110)
[2016-04-30 23:04] VITALS: BP 133/55
[2016-05-01] MEDS: FAMOTIDINE 20 MG TABLET PO SCH (06:14)
[2016-05-01 06:17] LABS: GLUCOSE,POINT OF CARE 77 MG/DL (70-110)
[2016-05-01 06:53] VITALS: BP 150/77
[2016-05-01] MEDS: ACETAMINOPHEN 325 MG TABLET PO PRN ×2 (06:53→06:54)
[2016-05-01 07:47] LABS: GLUCOSE COMMENT 1 Juice/Food/D50 Given; GLUCOSE,POINT OF CARE 65 MG/DL (70-110)
[2016-05-01] MEDS: LACTOBAC ACID/BULG/BIFID/THERM TABLET PO SCH (08:11)
[2016-05-01] MEDS: DOCUSATE SODIUM 250 MG CAPSULE PO SCH ×2 (08:11→21:00)
[2016-05-01] MEDS: CALCIUM CARBONATE 500 MG CHEWABLE TABLET CHEW SCH ×2 (08:11→21:04)
[2016-05-01] MEDS: PredniSONE 5 MG TABLET PO SCH (08:11)
[2016-05-01] MEDS: BETHANECHOL CHLORIDE 25 MG TABLET PO SCH ×3 (08:11→21:04)
[2016-05-01] MEDS: TACROLIMUS ANHYDROUS 1 MG CAPSULE PO SCH ×2 (08:11→21:04)
[2016-05-01] MEDS: CHOLECALCIFEROL (VIT D3) 1,000 UNITS TABLET PO SCH (08:12)
[2016-05-01] MEDS: HEPARIN SODIUM,PORCINE 5,000 UNITS/ML VIAL SQ SCH ×2 (08:12→21:05)
[2016-05-01] MEDS: INSULIN DETEMIR 100 UNITS/ML SQ SCH ×3 (08:12→21:02)
[2016-05-01] MEDS: 0.9% SODIUM CHLORIDE 10 ML SYRINGE IVP SCH ×2 (08:13→16:06)
[2016-05-01] MEDS ORDERED: DEXTROSE 50%-WATER 25 GM/50 ML SYRINGE IVP ONE (10:00)
[2016-05-01 12:27] LABS: GLUCOSE,POINT OF CARE 268 MG/DL (70-110)
[2016-05-01] MEDS: INSULIN ASPART 100 UNITS/ML SQ PRN ×3 (12:34→21:03)
[2016-05-01 16:51] LABS: GLUCOSE COMMENT 1 Received Meds; GLUCOSE,POINT OF CARE 201 MG/DL (70-110)
[2016-05-01] MEDS: CefTRIAXone 1 GM/DEXTROSE 50 ML IV SCH (17:04)
[2016-05-01 20:40] VITALS: BP 180/87
[2016-05-01 20:52] LABS: GLUCOSE COMMENT 1 Received Meds; GLUCOSE,POINT OF CARE 185 MG/DL (70-110)
[2016-05-01 21:00] VITALS: BP 145/70
[2016-05-01] MEDS: SENNA 187 MG TABLET PO SCH (21:00)
[2016-05-01] MEDS: TAMSULOSIN HCL 0.4 MG CAPSULE PO SCH (21:04)
[2016-05-01] MEDS: SIMVASTATIN 20 MG TABLET PO SCH (21:04)
[2016-05-01] MEDS: GuaiFENesin/D-METHORPHAN [SUGAR-FREE] 200-20MG/10 ML SYRUP UDCUP PO PRN (21:21)
[2016-05-01] MEDS: BENZOCAINE 10% 7 GM GEL TP PRN (21:45)
[2016-05-02] VITALS: BP 135/69
[2016-05-02] MEDS: 0.9% SODIUM CHLORIDE 10 ML SYRINGE IVP SCH ×4 (00:10→23:14)
[2016-05-02 05:41] LABS: GLUCOSE,POINT OF CARE 151 MG/DL (70-110)
[2016-05-02] MEDS: FAMOTIDINE 20 MG TABLET PO SCH (06:15)
[2016-05-02 07:40] VITALS: BP 133/64
[2016-05-02] MEDS: TACROLIMUS ANHYDROUS 1 MG CAPSULE PO SCH ×2 (08:29→20:45)
[2016-05-02] MEDS: BETHANECHOL CHLORIDE 25 MG TABLET PO SCH ×3 (08:29→20:45)
[2016-05-02] MEDS: CALCIUM CARBONATE 500 MG CHEWABLE TABLET CHEW SCH ×2 (08:29→20:45)
[2016-05-02] MEDS: CHOLECALCIFEROL (VIT D3) 1,000 UNITS TABLET PO SCH (08:29)
[2016-05-02] MEDS: PredniSONE 5 MG TABLET PO SCH (08:30)
[2016-05-02] MEDS: HEPARIN SODIUM,PORCINE 5,000 UNITS/ML VIAL SQ SCH ×2 (08:30→20:46)
[2016-05-02] MEDS: LACTOBAC ACID/BULG/BIFID/THERM TABLET PO SCH (08:30)
[2016-05-02] MEDS: INSULIN ASPART 100 UNITS/ML SQ PRN ×3 (08:41→20:49)
[2016-05-02] MEDS: INSULIN DETEMIR 100 UNITS/ML SQ SCH ×2 (08:42→20:47)
[2016-05-02] MEDS: DOCUSATE SODIUM 250 MG CAPSULE PO SCH ×2 (09:00→20:45)
[2016-05-02 10:30] VITALS: BP 158/73
[2016-05-02 10:35] VITALS: BP 128/70
[2016-05-02 10:40] VITALS: BP 100/57
[2016-05-02] MEDS ORDERED: AMLO-511 PO (12:26)
[2016-05-02 12:47] LABS: GLUCOSE,POINT OF CARE 89 MG/DL (70-110)
[2016-05-02] MEDS: BENZONATATE 100 MG CAPSULE PO SCH ×2 (17:28→23:14)
[2016-05-02] MEDS: CefTRIAXone 1 GM/DEXTROSE 50 ML IV SCH (17:29)
[2016-05-02 17:59] VITALS: BP 143/84
[2016-05-02 19:37] LABS: GLUCOSE,POINT OF CARE 297 MG/DL (70-110)
[2016-05-02] MEDS: SENNA 187 MG TABLET PO SCH (20:45)
[2016-05-02] MEDS: SIMVASTATIN 20 MG TABLET PO SCH (20:45)
[2016-05-02 21:41] LABS: GLUCOSE,POINT OF CARE 215 MG/DL (70-110)
[2016-05-03] VITALS: BP 139/70
[2016-05-03 05:47] LABS: GLUCOSE,POINT OF CARE 184 MG/DL (70-110)
[2016-05-03] MEDS: FAMOTIDINE 20 MG TABLET PO SCH (05:50)
[2016-05-03 07:20] VITALS: BP 143/75
[2016-05-03] MEDS: BENZONATATE 100 MG CAPSULE PO SCH ×2 (08:19→15:49)
[2016-05-03] MEDS: 0.9% SODIUM CHLORIDE 10 ML SYRINGE IVP SCH ×2 (08:19→15:47)
[2016-05-03] MEDS: CALCIUM CARBONATE 500 MG CHEWABLE TABLET CHEW SCH ×2 (08:19→20:50)
[2016-05-03] MEDS: CHOLECALCIFEROL (VIT D3) 1,000 UNITS TABLET PO SCH (08:19)
[2016-05-03] MEDS: TACROLIMUS ANHYDROUS 1 MG CAPSULE PO SCH ×2 (08:20→20:49)
[2016-05-03] MEDS: LACTOBAC ACID/BULG/BIFID/THERM TABLET PO SCH (08:20)
[2016-05-03] MEDS: PredniSONE 5 MG TABLET PO SCH (08:20)
[2016-05-03] MEDS: DOCUSATE SODIUM 250 MG CAPSULE PO SCH ×3 (08:20→20:58)
[2016-05-03] MEDS: HEPARIN SODIUM,PORCINE 5,000 UNITS/ML VIAL SQ SCH ×2 (08:20→20:52)
[2016-05-03] MEDS: BETHANECHOL CHLORIDE 25 MG TABLET PO SCH ×3 (08:20→20:50)
[2016-05-03] MEDS: INSULIN ASPART 100 UNITS/ML SQ PRN ×4 (08:22→21:02)
[2016-05-03] MEDS: INSULIN DETEMIR 100 UNITS/ML SQ SCH ×2 (08:23→21:01)
[2016-05-03 13:17] LABS: GLUCOSE,POINT OF CARE 175 MG/DL (70-110)
[2016-05-03 15:31] VITALS: BP 158/78
[2016-05-03] MEDS: BENZOCAINE 10% 7 GM GEL TP PRN (17:55)
[2016-05-03] MEDS: CefTRIAXone 1 GM/DEXTROSE 50 ML IV SCH (17:58)
[2016-05-03 18:02] LABS: GLUCOSE,POINT OF CARE 232 MG/DL (70-110)
[2016-05-03] MEDS: GuaiFENesin/D-METHORPHAN [SUGAR-FREE] 200-20MG/10 ML SYRUP UDCUP PO PRN (18:51)
[2016-05-03 20:37] LABS: GLUCOSE COMMENT 1 Received Meds; GLUCOSE,POINT OF CARE 264 MG/DL (70-110)
[2016-05-03] MEDS: SIMVASTATIN 20 MG TABLET PO SCH (20:49)
[2016-05-03] MEDS: SENNA 187 MG TABLET PO SCH ×2 (20:51→20:58)
[2016-05-04 00:15] VITALS: BP 148/71
[2016-05-04] MEDS: BENZONATATE 100 MG CAPSULE PO SCH ×4 (00:16→23:54)
[2016-05-04 05:42] LABS: GLUCOSE,POINT OF CARE 164 MG/DL (70-110)
[2016-05-04] MEDS: FAMOTIDINE 20 MG TABLET PO SCH (05:51)
[2016-05-04 07:11] VITALS: BP 153/75
[2016-05-04 07:21] LABS: CALCIUM, TOTAL 8.1 mg/dL (8.8-10.5); CREATININE 1.27 mg/dL (0.60-1.30); MAGNESIUM 1.9 mg/dL (1.80-2.40); PHOSPHORUS 3.5 mg/dL (2.5-4.9); POTASSIUM 4.7 mmol/L (3.5-5.1)
[2016-05-04] MEDS: BETHANECHOL CHLORIDE 25 MG TABLET PO SCH ×4 (08:13→21:06)
[2016-05-04] MEDS: CALCIUM CARBONATE 500 MG CHEWABLE TABLET CHEW SCH ×2 (08:14→21:02)
[2016-05-04] MEDS: CHOLECALCIFEROL (VIT D3) 1,000 UNITS TABLET PO SCH (08:14)
[2016-05-04] MEDS: TACROLIMUS ANHYDROUS 1 MG CAPSULE PO SCH ×2 (08:14→21:01)
[2016-05-04] MEDS: HEPARIN SODIUM,PORCINE 5,000 UNITS/ML VIAL SQ SCH ×2 (08:14→21:01)
[2016-05-04] MEDS: PredniSONE 5 MG TABLET PO SCH (08:14)
[2016-05-04] MEDS: LACTOBAC ACID/BULG/BIFID/THERM TABLET PO SCH (08:14)
[2016-05-04] MEDS: INSULIN DETEMIR 100 UNITS/ML SQ SCH ×2 (08:15→21:04)
[2016-05-04] MEDS: INSULIN ASPART 100 UNITS/ML SQ PRN ×3 (08:15→21:05)
[2016-05-04] MEDS: DOCUSATE SODIUM 250 MG CAPSULE PO SCH ×2 (08:19→21:01)
[2016-05-04] MEDS: LOSARTAN POTASSIUM 25 MG TABLET PO SCH (09:29)
[2016-05-04 11:22] LABS: GLUCOSE,POINT OF CARE 106 MG/DL (70-110)
[2016-05-04 14:10] VITALS: BP 160/78
[2016-05-04 15:00] VITALS: BP 147/67
[2016-05-04 18:26] LABS: GLUCOSE COMMENT 1 Received Meds; GLUCOSE,POINT OF CARE 256 MG/DL (70-110)
[2016-05-04 20:32] LABS: GLUCOSE COMMENT 1 Received Meds; GLUCOSE,POINT OF CARE 216 MG/DL (70-110)
[2016-05-04] MEDS: SENNA 187 MG TABLET PO SCH (21:01)
[2016-05-04] MEDS: SIMVASTATIN 20 MG TABLET PO SCH (21:03)
[2016-05-05 00:38] VITALS: BP 141/67
[2016-05-05 05:47] LABS: GLUCOSE,POINT OF CARE 143 MG/DL (70-110)
[2016-05-05] MEDS: FAMOTIDINE 20 MG TABLET PO SCH (06:15)
[2016-05-05 07:08] VITALS: BP 142/72
[2016-05-05 07:20] LABS: CALCIUM, TOTAL 8.5 mg/dL (8.8-10.5); CREATININE 1.4 mg/dL (0.60-1.30); MAGNESIUM 2.1 mg/dL (1.80-2.40); PHOSPHORUS 3.9 mg/dL (2.5-4.9); POTASSIUM 4.9 mmol/L (3.5-5.1)
[2016-05-05] MEDS: HEPARIN SODIUM,PORCINE 5,000 UNITS/ML VIAL SQ SCH ×2 (07:34→20:15)
[2016-05-05] MEDS: CHOLECALCIFEROL (VIT D3) 1,000 UNITS TABLET PO SCH (07:35)
[2016-05-05] MEDS: LACTOBAC ACID/BULG/BIFID/THERM TABLET PO SCH (07:35)
[2016-05-05] MEDS: TACROLIMUS ANHYDROUS 1 MG CAPSULE PO SCH ×2 (07:35→20:15)
[2016-05-05] MEDS: CALCIUM CARBONATE 500 MG CHEWABLE TABLET CHEW SCH ×2 (07:35→20:15)
[2016-05-05] MEDS: LOSARTAN POTASSIUM 25 MG TABLET PO SCH (07:35)
[2016-05-05] MEDS: BENZONATATE 100 MG CAPSULE PO SCH ×3 (07:35→23:19)
[2016-05-05] MEDS: BETHANECHOL CHLORIDE 25 MG TABLET PO SCH ×3 (07:36→20:16)
[2016-05-05] MEDS: PredniSONE 5 MG TABLET PO SCH (07:36)
[2016-05-05] MEDS: INSULIN ASPART 100 UNITS/ML SQ PRN ×3 (07:37→20:22)
[2016-05-05] MEDS: INSULIN DETEMIR 100 UNITS/ML SQ SCH ×2 (07:38→20:21)
[2016-05-05] MEDS: DOCUSATE SODIUM 250 MG CAPSULE PO SCH ×2 (07:38→20:16)
[2016-05-05] MEDS: BRIMONIDINE/TIMOLOL 0.2-0.5% 5 ML OPHTHALMIC SOLUTION OU SCH (11:19)
[2016-05-05 12:52] LABS: GLUCOSE,POINT OF CARE 128 MG/DL (70-110)
[2016-05-05 13:19] VITALS: BP 102/47
[2016-05-05 15:35] VITALS: BP 135/67
[2016-05-05 17:22] LABS: GLUCOSE COMMENT 1 Received Meds; GLUCOSE,POINT OF CARE 212 MG/DL (70-110)
[2016-05-05] MEDS: SIMVASTATIN 20 MG TABLET PO SCH (20:15)
[2016-05-05] MEDS: TRAVOPROST-Z 0.004% 2.5 ML OPHTHALMIC SOLUTION OU SCH (20:16)
[2016-05-05] MEDS: SENNA 187 MG TABLET PO SCH (20:16)
[2016-05-05 20:37] LABS: GLUCOSE COMMENT 1 Received Meds; GLUCOSE,POINT OF CARE 218 MG/DL (70-110)
[2016-05-05 23:18] VITALS: BP 133/65
[2016-05-05] MEDS: DOCUSATE SODIUM 283 MG/5 ML MINI-ENEMA PR PRN (23:31)
[2016-05-06] MEDS: FAMOTIDINE 20 MG TABLET PO SCH (05:58)
[2016-05-06] MEDS: GuaiFENesin/D-METHORPHAN [SUGAR-FREE] 200-20MG/10 ML SYRUP UDCUP PO PRN (05:59)
[2016-05-06 06:02] LABS: GLUCOSE,POINT OF CARE 251 MG/DL (70-110)
[2016-05-06 07:20] VITALS: BP 143/79
[2016-05-06] MEDS: CHOLECALCIFEROL (VIT D3) 1,000 UNITS TABLET PO SCH (08:19)
[2016-05-06] MEDS: BETHANECHOL CHLORIDE 25 MG TABLET PO SCH ×3 (08:19→20:53)
[2016-05-06] MEDS: DOCUSATE SODIUM 250 MG CAPSULE PO SCH ×3 (08:19→20:59)
[2016-05-06] MEDS: TACROLIMUS ANHYDROUS 1 MG CAPSULE PO SCH ×2 (08:20→20:53)
[2016-05-06] MEDS: LOSARTAN POTASSIUM 25 MG TABLET PO SCH (08:20)
[2016-05-06] MEDS: CALCIUM CARBONATE 500 MG CHEWABLE TABLET CHEW SCH ×2 (08:20→20:53)
[2016-05-06] MEDS: BENZONATATE 100 MG CAPSULE PO SCH ×2 (08:20→15:30)
[2016-05-06] MEDS: PredniSONE 5 MG TABLET PO SCH (08:20)
[2016-05-06] MEDS: HEPARIN SODIUM,PORCINE 5,000 UNITS/ML VIAL SQ SCH ×2 (08:21→20:53)
[2016-05-06] MEDS: LACTOBAC ACID/BULG/BIFID/THERM TABLET PO SCH (08:21)
[2016-05-06] MEDS: INSULIN ASPART 100 UNITS/ML SQ PRN ×3 (08:24→20:50)
[2016-05-06] MEDS: INSULIN DETEMIR 100 UNITS/ML SQ SCH ×2 (08:25→20:51)
[2016-05-06] MEDS: BRIMONIDINE/TIMOLOL 0.2-0.5% 5 ML OPHTHALMIC SOLUTION OU SCH (08:27)
[2016-05-06 09:24] LABS: CREATININE 1.4 mg/dL (0.60-1.30); POTASSIUM 5.1 mmol/L (3.5-5.1)
[2016-05-06 09:40] VITALS: BP 70/40
[2016-05-06 09:45] VITALS: BP 88/48
[2016-05-06 10:00] VITALS: BP 97/55
[2016-05-06 12:12] LABS: GLUCOSE,POINT OF CARE 121 MG/DL (70-110)
[2016-05-06] MEDS ORDERED: SODIUM CHLORIDE 0.9% 250 ML IV ONE (13:45)
[2016-05-06 15:00] VITALS: BP 122/63
[2016-05-06] MEDS: 0.9% SODIUM CHLORIDE 10 ML SYRINGE IVP SCH (15:34)
[2016-05-06 18:11] LABS: GLUCOSE COMMENT 1 Received Meds; GLUCOSE,POINT OF CARE 256 MG/DL (70-110)
[2016-05-06] MEDS: SIMVASTATIN 20 MG TABLET PO SCH (20:53)
[2016-05-06] MEDS: TRAVOPROST-Z 0.004% 2.5 ML OPHTHALMIC SOLUTION OU SCH (20:53)
[2016-05-06] MEDS: SENNA 187 MG TABLET PO SCH ×2 (20:54→20:59)
[2016-05-06 21:52] LABS: GLUCOSE COMMENT 1 Received Meds; GLUCOSE,POINT OF CARE 395 MG/DL (70-110)
[2016-05-07] MEDS: BENZONATATE 100 MG CAPSULE PO SCH ×4 (00:21→21:03)
[2016-05-07] MEDS: 0.9% SODIUM CHLORIDE 10 ML SYRINGE IVP SCH ×3 (00:36→16:08)
[2016-05-07 00:54] VITALS: BP 147/66
[2016-05-07] MEDS: FAMOTIDINE 20 MG TABLET PO SCH (05:41)
[2016-05-07 05:57] LABS: GLUCOSE,POINT OF CARE 218 MG/DL (70-110)
[2016-05-07 07:04] VITALS: BP 151/69
[2016-05-07] MEDS: BRIMONIDINE/TIMOLOL 0.2-0.5% 5 ML OPHTHALMIC SOLUTION OU SCH (08:15)
[2016-05-07] MEDS: HEPARIN SODIUM,PORCINE 5,000 UNITS/ML VIAL SQ SCH ×2 (08:16→21:03)
[2016-05-07] MEDS: DOCUSATE SODIUM 250 MG CAPSULE PO SCH ×2 (08:16→21:05)
[2016-05-07] MEDS: PredniSONE 5 MG TABLET PO SCH (08:16)
[2016-05-07] MEDS: LACTOBAC ACID/BULG/BIFID/THERM TABLET PO SCH (08:16)
[2016-05-07] MEDS: CALCIUM CARBONATE 500 MG CHEWABLE TABLET CHEW SCH ×2 (08:16→21:05)
[2016-05-07] MEDS: CHOLECALCIFEROL (VIT D3) 1,000 UNITS TABLET PO SCH (08:17)
[2016-05-07] MEDS: BETHANECHOL CHLORIDE 25 MG TABLET PO SCH ×3 (08:17→21:04)
[2016-05-07] MEDS: TACROLIMUS ANHYDROUS 1 MG CAPSULE PO SCH ×2 (08:17→21:05)
[2016-05-07] MEDS: INSULIN DETEMIR 100 UNITS/ML SQ SCH ×2 (08:19→21:10)
[2016-05-07] MEDS: INSULIN ASPART 100 UNITS/ML SQ PRN ×4 (08:19→21:14)
[2016-05-07 10:38] VITALS: BP 99/55
[2016-05-07 10:42] VITALS: BP 100/57
[2016-05-07 12:17] LABS: GLUCOSE,POINT OF CARE 141 MG/DL (70-110)
[2016-05-07 15:11] VITALS: BP 147/74
[2016-05-07] MEDS: TRAVOPROST-Z 0.004% 2.5 ML OPHTHALMIC SOLUTION OU SCH (21:03)
[2016-05-07] MEDS: SIMVASTATIN 20 MG TABLET PO SCH (21:04)
[2016-05-07] MEDS: SENNA 187 MG TABLET PO SCH (21:05)
[2016-05-08] MEDS: 0.9% SODIUM CHLORIDE 10 ML SYRINGE IVP SCH ×3 (00:42→16:16)
[2016-05-08 03:30] VITALS: BP 137/76
[2016-05-08 05:27] LABS: GLUCOSE COMMENT 1 Received Meds; GLUCOSE,POINT OF CARE 186 MG/DL (70-110)
[2016-05-08 05:27] LABS: GLUCOSE COMMENT 1 Received Meds; GLUCOSE,POINT OF CARE 308 MG/DL (70-110)
[2016-05-08 05:42] LABS: GLUCOSE,POINT OF CARE 100 MG/DL (70-110)
[2016-05-08] MEDS: FAMOTIDINE 20 MG TABLET PO SCH (05:44)
[2016-05-08] MEDS ORDERED: BETH25 PO (08:17)
[2016-05-08] MEDS ORDERED: INSU100V12 SQ (08:17)
[2016-05-08] MEDS ORDERED: CACARB500 CHEW (08:17)
[2016-05-08] MEDS ORDERED: BENZ-26 PO (08:17)
[2016-05-08] MEDS ORDERED: INSNOV SQ (08:17)
[2016-05-08] MEDS ORDERED: COMB5OS OU (08:17)
[2016-05-08] MEDS ORDERED: TRAVZOS OU (08:17)
[2016-05-08] MEDS ORDERED: DOCU250C91 PO (08:17)
[2016-05-08 08:22] VITALS: BP 142/72
[2016-05-08] MEDS: TACROLIMUS ANHYDROUS 1 MG CAPSULE PO SCH ×2 (08:47→20:14)
[2016-05-08] MEDS: BETHANECHOL CHLORIDE 25 MG TABLET PO SCH ×3 (08:48→20:14)
[2016-05-08] MEDS: BENZONATATE 100 MG CAPSULE PO SCH ×3 (08:48→20:14)
[2016-05-08] MEDS: DOCUSATE SODIUM 250 MG CAPSULE PO SCH ×2 (08:48→20:14)
[2016-05-08] MEDS: PredniSONE 5 MG TABLET PO SCH (08:48)
[2016-05-08] MEDS: BRIMONIDINE/TIMOLOL 0.2-0.5% 5 ML OPHTHALMIC SOLUTION OU SCH (08:48)
[2016-05-08] MEDS: CALCIUM CARBONATE 500 MG CHEWABLE TABLET CHEW SCH ×3 (08:48→20:14)
[2016-05-08] MEDS: LACTOBAC ACID/BULG/BIFID/THERM TABLET PO SCH (08:48)
[2016-05-08] MEDS: HEPARIN SODIUM,PORCINE 5,000 UNITS/ML VIAL SQ SCH ×2 (08:49→20:15)
[2016-05-08] MEDS: INSULIN DETEMIR 100 UNITS/ML SQ SCH ×2 (08:54→20:18)
[2016-05-08] MEDS: DOCUSATE SODIUM 283 MG/5 ML MINI-ENEMA PR PRN (09:09)
[2016-05-08 10:06] LABS: CALCIUM, TOTAL 8.6 mg/dL (8.8-10.5); CREATININE 1.41 mg/dL (0.60-1.30); MAGNESIUM 2.3 mg/dL (1.80-2.40); PHOSPHORUS 4.1 mg/dL (2.5-4.9); POTASSIUM 5.5 mmol/L (3.5-5.1)
[2016-05-08] MEDS ORDERED: SODIUM POLYSTYRENE SULFONATE 15 GM/60 ML SUSPENSION BOTTLE PO ONE (10:15)
[2016-05-08 11:57] LABS: GLUCOSE,POINT OF CARE 272 MG/DL (70-110)
[2016-05-08] MEDS: INSULIN ASPART 100 UNITS/ML SQ PRN ×3 (12:43→20:20)
[2016-05-08 15:04] VITALS: BP 154/71
[2016-05-08] MEDS: SENNA 187 MG TABLET PO SCH (20:14)
[2016-05-08] MEDS: SIMVASTATIN 20 MG TABLET PO SCH (20:14)
[2016-05-08] MEDS: TRAVOPROST-Z 0.004% 2.5 ML OPHTHALMIC SOLUTION OU SCH (20:15)
[2016-05-08 23:42] VITALS: BP 146/65
[2016-05-09] MEDS: 0.9% SODIUM CHLORIDE 10 ML SYRINGE IVP SCH ×2 (00:21→08:00)
[2016-05-09 03:47] LABS: GLUCOSE COMMENT 1 Received Meds; GLUCOSE,POINT OF CARE 166 MG/DL (70-110)
[2016-05-09 03:51] LABS: GLUCOSE COMMENT 1 Received Meds; GLUCOSE,POINT OF CARE 208 MG/DL (70-110)
[2016-05-09 05:36] LABS: GLUCOSE,POINT OF CARE 98 MG/DL (70-110)
[2016-05-09] MEDS: FAMOTIDINE 20 MG TABLET PO SCH (06:11)
[2016-05-09 07:03] VITALS: BP 151/82
[2016-05-09 07:38] LABS: CALCIUM, TOTAL 8.1 mg/dL (8.8-10.5); CREATININE 1.33 mg/dL (0.60-1.30); MAGNESIUM 2.2 mg/dL (1.80-2.40); PHOSPHORUS 4.5 mg/dL (2.5-4.9)
[2016-05-09] MEDS: CALCIUM CARBONATE 500 MG CHEWABLE TABLET CHEW SCH ×3 (09:00→20:18)
[2016-05-09] MEDS: BRIMONIDINE/TIMOLOL 0.2-0.5% 5 ML OPHTHALMIC SOLUTION OU SCH (09:09)
[2016-05-09] MEDS: HEPARIN SODIUM,PORCINE 5,000 UNITS/ML VIAL SQ SCH ×2 (09:10→20:09)
[2016-05-09] MEDS: TACROLIMUS ANHYDROUS 1 MG CAPSULE PO SCH ×2 (09:10→20:08)
[2016-05-09] MEDS: DOCUSATE SODIUM 250 MG CAPSULE PO SCH ×2 (09:10→20:08)
[2016-05-09] MEDS: PredniSONE 5 MG TABLET PO SCH (09:10)
[2016-05-09] MEDS: BETHANECHOL CHLORIDE 25 MG TABLET PO SCH ×3 (09:10→20:09)
[2016-05-09] MEDS: LACTOBAC ACID/BULG/BIFID/THERM TABLET PO SCH (09:10)
[2016-05-09] MEDS: BENZONATATE 100 MG CAPSULE PO SCH ×3 (09:11→20:08)
[2016-05-09] MEDS: INSULIN DETEMIR 100 UNITS/ML SQ SCH ×2 (09:16→20:10)
[2016-05-09 11:56] LABS: GLUCOSE,POINT OF CARE 233 MG/DL (70-110)
[2016-05-09] MEDS: ASPIRIN 81 MG EC TABLET PO SCH (12:27)
[2016-05-09] MEDS: INSULIN ASPART 100 UNITS/ML SQ PRN ×2 (12:59→17:46)
[2016-05-09 15:00] VITALS: BP 142/80
[2016-05-09] MEDS ORDERED: ASPI81TA2 PO (17:33)
[2016-05-09] MEDS ORDERED: ACIDOPHILUS PROB1 MG PO (17:33)
[2016-05-09 17:47] LABS: GLUCOSE COMMENT 1 Received Meds; GLUCOSE,POINT OF CARE 190 MG/DL (70-110)
[2016-05-09] MEDS: SIMVASTATIN 20 MG TABLET PO SCH (20:08)
[2016-05-09] MEDS: TRAVOPROST-Z 0.004% 2.5 ML OPHTHALMIC SOLUTION OU SCH (20:09)
[2016-05-09] MEDS: SENNA 187 MG TABLET PO SCH ×2 (20:09→20:17)
[2016-05-09 21:02] LABS: GLUCOSE,POINT OF CARE 113 MG/DL (70-110)
[2016-05-10 04:00] VITALS: BP 124/66
[2016-05-10] MEDS: FAMOTIDINE 20 MG TABLET PO SCH (05:54)
[2016-05-10 06:16] LABS: GLUCOSE,POINT OF CARE 179 MG/DL (70-110)
[2016-05-10 07:10] VITALS: BP 152/81
[2016-05-10] MEDS: BENZONATATE 100 MG CAPSULE PO SCH (08:45)
[2016-05-10] MEDS: TACROLIMUS ANHYDROUS 1 MG CAPSULE PO SCH (08:46)
[2016-05-10] MEDS: LACTOBAC ACID/BULG/BIFID/THERM TABLET PO SCH (08:46)
[2016-05-10] MEDS: BRIMONIDINE/TIMOLOL 0.2-0.5% 5 ML OPHTHALMIC SOLUTION OU SCH (08:46)
[2016-05-10] MEDS: ASPIRIN 81 MG EC TABLET PO SCH (08:46)
[2016-05-10] MEDS: PredniSONE 5 MG TABLET PO SCH (08:46)
[2016-05-10] MEDS: DOCUSATE SODIUM 250 MG CAPSULE PO SCH ×2 (08:46→08:58)
[2016-05-10] MEDS: HEPARIN SODIUM,PORCINE 5,000 UNITS/ML VIAL SQ SCH (08:46)
[2016-05-10] MEDS: BETHANECHOL CHLORIDE 25 MG TABLET PO SCH (08:46)
[2016-05-10] MEDS: INSULIN ASPART 100 UNITS/ML SQ PRN ×2 (08:47→12:51)
[2016-05-10] MEDS: INSULIN DETEMIR 100 UNITS/ML SQ SCH (08:48)
[2016-05-10 12:19] LABS: GLUCOSE,POINT OF CARE 185 MG/DL (70-110)
[2016-08-05] MEDS ORDERED: LEVO500 PO (11:04)
== END 2016-05-10 14:40 | disposition home health service (06) | DRG 64 ==
LOC: 2WR 18:30
PROVIDERS: ADMIT Physical Medicine & Rehabilitation; ATTEND Physical Medicine & Rehabilitation
DX: I63.9 Cerebral infarction, unspecified (principal); G93.41 Metabolic encephalopathy; N18.6 End stage renal disease; E43 Unspecified severe protein-calorie malnutrition; I12.0 Hypertensive chronic kidney disease with stage 5 chronic kidney disease or end stage renal disease; N39.0 Urinary tract infection, site not specified; I69.351 Hemiplegia and hemiparesis following cerebral infarction affecting right dominant side; Z68.1 Body mass index [BMI] 19.9 or less, adult; Z94.0 Kidney transplant status; E11.649 Type 2 diabetes mellitus with hypoglycemia without coma; B96.20 Unspecified Escherichia coli [E. coli] as the cause of diseases classified elsewhere; D69.6 Thrombocytopenia, unspecified; E11.21 Type 2 diabetes mellitus with diabetic nephropathy; E11.22 Type 2 diabetes mellitus with diabetic chronic kidney disease; E55.9 Vitamin D deficiency, unspecified; E78.00 Pure hypercholesterolemia, unspecified; E78.5 Hyperlipidemia, unspecified; E87.5 Hyperkalemia; E11.65 Type 2 diabetes mellitus with hyperglycemia; M81.0 Age-related osteoporosis without current pathological fracture; D63.1 Anemia in chronic kidney disease; H91.90 Unspecified hearing loss, unspecified ear; I65.29 Occlusion and stenosis of unspecified carotid artery; J47.9 Bronchiectasis, uncomplicated; R56.9 Unspecified convulsions; T38.0X5A Adverse effect of glucocorticoids and synthetic analogues, initial encounter; Z79.4 Long term (current) use of insulin; Z87.440 Personal history of urinary (tract) infections; Y92.89 Other specified places as the place of occurrence of the external cause; Z99.2 Dependence on renal dialysis
CPT/HCPCS: 71020; 71250; 82306; 82962; 83735; 84100; 87040; 87081; 87086; 92507; 92508; 92523; 94667; 94668; 97110; 97112; 97116; 97150; 97163; 97166; 97530; 97535; 99366; J0696; J1644; J1815; J7030; J7050; J7507

== ENCOUNTER 2016-12-13 16:55 | Inpatient (IN) | payer OTHER ==
[~2016-12-13] VITALS: Ht 147.3 cm; Wt 49.0 kg
[~2016-12-13 16:55] MED LIST changes: +ACIDOPHILUS PROB1 MG PO; -AMLO-512 PO; +ASPI81TA39 PO; -BACID PO; +BENZ-51 PO; -CALC600T95 PO; +COMB5OS OU; +DOCU250C91 PO; -FURO20 PO; -INSLAN SQ; +LEVO500 PO; -TAMS0.4C32 PO; +TRAVZOS OU
[2016-12-13] MEDS ORDERED: 0.9% SODIUM CHLORIDE 10 ML SYRINGE IVP PRN (17:15)
[2016-12-13] MEDS ORDERED: SODIUM CHLORIDE 0.9% 2,000 ML IV ONE (17:15)
[2016-12-13 17:27] LABS: GLUCOSE,POINT OF CARE 96 MG/DL (70-110)
[2016-12-13 17:35] LABS: BASOPHILS % (AUTO) 0.4 % (0.0-2.0); EOSINOPHILS % (AUTO) 0.2 % (1.0-6.0); HEMATOCRIT 35.4 % (36-46); HEMOGLOBIN 11.6 g/dL (12.0-16.0); LYMPHOCYTES # (AUTO) 1.6 K/uL (1.0-4.8); LYMPHOCYTES % (AUTO) 10.8 % (22.0-44.0); MEAN CORPUSCULAR HEMOGLOBIN 26.7 pg (26.0-34.0); MEAN CORPUSCULAR HGB CONC 32.7 G/dL (31.0-37.0); MEAN CORPUSCULAR VOLUME 81 fL (80-100); MONOCYTES # (AUTO) 0.8 K/uL (0.1-1.0); MONOCYTES % (AUTO) 5.5 % (2.0-9.0); NEUTROPHILS # (AUTO) 12.4 K/uL (1.8-7.7); NEUTROPHILS % (AUTO) 83.1 % (40.0-70.0); PLATELET COUNT (AUTO) 270 K/uL (150-450); RED BLOOD CELL COUNT(AUTO) 4.35 MIL/uL (4.00-5.20); RED CELL DISTRIBUTION WIDTH 13.1 % (11.5-14.5); WHITE BLOOD COUNT (AUTO) 14.9 K/uL (4.5-11.0)
[2016-12-13 17:45] LABS: ANION GAP 7 mmol/L (8-16); CALCIUM, TOTAL 8.5 mg/dL (8.8-10.5); CARBON DIOXIDE 25 mmol/L (22-29); CHLORIDE 100 mmol/L (98-107); CREATININE 1.82 mg/dL (0.60-1.30); GLOMERULAR FILTR. RATE CALC 27 mL/min (>60); POTASSIUM 4.3 mmol/L (3.5-5.1); SODIUM SERUM 132 mmol/L (136-145); UREA NITROGEN, BLOOD 21 mg/dL (7-18)
[2016-12-13 17:49] LABS: APPEARANCE,URINE CLEAR (CLEAR); GLUCOSE, URINE (UA) 100 mg/dL (NEGATIVE); KETONES,URINE NEGATIVE (NEGATIVE); LEUKOCYTE ESTERASE ,URINE NEGATIVE (NEGATIVE); OCCULT BLOOD,URINE NEGATIVE (NEGATIVE); PH,URINE 6.5 (5.0-8.0); PROTEIN,URINE SEE CONFIRM (NEGATIVE)
[2016-12-13 17:51] LABS: ALANINE AMINOTRANSFERASE 16 U/L (12-78); ALBUMIN 2.9 g/dL (3.4-5.0); ASPARTATE AMINOTRANSFERASE 27 U/L (15-37); BILIRUBIN,TOTAL 0.4 mg/dL (0.1-1.0); CREATINE KINASE, TOTAL 72 U/L (26-192); TOTAL PROTEIN, SERUM 7.7 g/dL (6.4-8.2)
[2016-12-13 17:52] LABS: ADD UA MICROSCOPIC YES
[2016-12-13 17:53] LABS: LACTIC ACID 0.9 mmol/L (0.4-2.0)
[2016-12-13 17:56] LABS: B-TYPE NATRIURETIC PEPTIDE 402 pg/mL (0-100)
[2016-12-13 18:02] LABS: RBC,URINE None Seen /HPF (0-2); SQUAMOUS EPITHELIAL CELL,UR Rare /LPF (None Seen); SULFOSALICYLIC ACID,URINE 1+ (Negative); WBC,URINE 0-2 /HPF (0-5)
[2016-12-13 18:06] LABS: PARTIAL THROMBOPLASTIN TIME 35 SEC (25-35)
[2016-12-13] MEDS ORDERED: ACETAMINOPHEN 650 MG/20.3 ML SOLUTION UDCUP PO ONE (18:45)
[2016-12-13] MEDS ORDERED: ACETAMINOPHEN 325 MG TABLET PO ONE (18:45)
[2016-12-13 18:48] LABS: PROCALCITONIN (PCT) 5.61 ng/mL (<0.50)
[2016-12-13 19:00] VITALS: BP 134/71
[2016-12-13] MEDS ORDERED: BISACODYL 10 MG RECTAL RECTAL SUPPOSITORY PR PRN (20:30)
[2016-12-13] MEDS ORDERED: ALBUTEROL SULFATE 2.5 MG/0.5 ML NEB SOLUTION NEB PRN (20:30)
[2016-12-13 20:31] VITALS: BP 108/59
[2016-12-13] MEDS ORDERED: DEXTROSE 50%-WATER 25 GM/50 ML SYRINGE IVP PRN (20:45)
[2016-12-13] MEDS ORDERED: FERG325 PO (20:54)
[2016-12-13] MEDS ORDERED: LEVE250T55 PO (20:54)
[2016-12-13] MEDS ORDERED: FURO20 PO (20:54)
[2016-12-13] MEDS: ACETAMINOPHEN 325 MG TABLET PO PRN (21:06)
[2016-12-13] MEDS: CefTRIAXone 1 GM/DEXTROSE 50 ML IV SCH (22:04)
[2016-12-13] MEDS: TACROLIMUS ANHYDROUS 1 MG CAPSULE PO SCH (22:05)
[2016-12-13] MEDS: LevETIRAcetam 250 MG TABLET PO SCH (22:05)
[2016-12-13] MEDS: HEPARIN SODIUM,PORCINE 5,000 UNITS/ML VIAL SQ SCH (22:05)
[2016-12-13] MEDS: DOCUSATE SODIUM 100 MG CAPSULE PO SCH (22:05)
[2016-12-13 23:25] VITALS: BP 139/79
[2016-12-14 00:03] LABS: GLUCOSE COMMENT 1 Doctor Notified; GLUCOSE COMMENT 2 Juice/Food/D50 Given; GLUCOSE,POINT OF CARE 43 MG/DL (70-110)
[2016-12-14 00:03] LABS: GLUCOSE COMMENT 1 Doctor Notified; GLUCOSE COMMENT 2 Juice/Food/D50 Given; GLUCOSE,POINT OF CARE 45 MG/DL (70-110)
[2016-12-14 00:03] LABS: GLUCOSE,POINT OF CARE 219 MG/DL (70-110)
[2016-12-14 00:03] LABS: GLUCOSE,POINT OF CARE 215 MG/DL (70-110)
[2016-12-14] MEDS: AZITHROMYCIN 500 MG/NS 250 ML IV SCH ×2 (00:12→22:02)
[2016-12-14] MEDS: ACETAMINOPHEN 325 MG TABLET PO PRN ×3 (03:54→20:25)
[2016-12-14] MEDS ORDERED: PNEUMOCOCCAL VACCINE POLYVALENT 0.5 ML VIAL [PPSV23] IM ONE (04:30)
[2016-12-14] MEDS ORDERED: INFLUENZA VIRUS VACCINE QVS 2017-18 (3YR+)/PF 60 MCG/0.5 ML SYRINGE IM ONE (04:30)
[2016-12-14 06:05] VITALS: BP 132/72
[2016-12-14] MEDS: INSULIN ASPART 100 UNITS/ML SQ PRN ×2 (06:09→17:23)
[2016-12-14 06:18] LABS: CALCIUM, TOTAL 8.5 mg/dL (8.8-10.5); CREATININE 1.58 mg/dL (0.60-1.30); POTASSIUM 4.6 mmol/L (3.5-5.1)
[2016-12-14 06:49] LABS: BASOPHILS % (AUTO) 0.3 % (0.0-2.0); EOSINOPHILS % (AUTO) 0.6 % (1.0-6.0); HEMATOCRIT 34.8 % (36-46); HEMOGLOBIN 11.4 g/dL (12.0-16.0); LYMPHOCYTES # (AUTO) 2.7 K/uL (1.0-4.8); LYMPHOCYTES % (AUTO) 17.6 % (22.0-44.0); MEAN CORPUSCULAR HGB CONC 32.7 G/dL (31.0-37.0); MEAN CORPUSCULAR VOLUME 82 fL (80-100); MONOCYTES # (AUTO) 0.7 K/uL (0.1-1.0); MONOCYTES % (AUTO) 4.8 % (2.0-9.0); NEUTROPHILS # (AUTO) 11.6 K/uL (1.8-7.7); NEUTROPHILS % (AUTO) 76.7 % (40.0-70.0); PLATELET COUNT (AUTO) 265 K/uL (150-450); RED BLOOD CELL COUNT(AUTO) 4.22 MIL/uL (4.00-5.20); RED CELL DISTRIBUTION WIDTH 13.2 % (11.5-14.5); WHITE BLOOD COUNT (AUTO) 15.1 K/uL (4.5-11.0)
[2016-12-14 06:53] LABS: GLUCOSE COMMENT 1 Received Meds; GLUCOSE,POINT OF CARE 193 MG/DL (70-110)
[2016-12-14 08:17] VITALS: BP 131/72
[2016-12-14] MEDS: LevETIRAcetam 250 MG TABLET PO SCH ×3 (09:37→20:24)
[2016-12-14] MEDS: TACROLIMUS ANHYDROUS 1 MG CAPSULE PO SCH ×2 (09:37→20:20)
[2016-12-14] MEDS: ASPIRIN 81 MG CHEWABLE TABLET PO SCH (09:38)
[2016-12-14] MEDS: PANTOPRAZOLE SODIUM 40 MG DR TABLET PO SCH (09:38)
[2016-12-14] MEDS: DOCUSATE SODIUM 100 MG CAPSULE PO SCH ×2 (09:38→21:00)
[2016-12-14] MEDS: HEPARIN SODIUM,PORCINE 5,000 UNITS/ML VIAL SQ SCH ×2 (09:38→20:20)
[2016-12-14] MEDS: PredniSONE 5 MG TABLET PO SCH (09:39)
[2016-12-14 11:53] VITALS: BP 118/65
[2016-12-14 15:17] LABS: GLUCOSE COMMENT 1 Received Meds; GLUCOSE,POINT OF CARE 154 MG/DL (70-110)
[2016-12-14 15:50] VITALS: BP 123/65
[2016-12-14 17:31] LABS: GLUCOSE,POINT OF CARE 174 MG/DL (70-110)
[2016-12-14 20:09] VITALS: BP 154/81
[2016-12-14] MEDS: CefTRIAXone 1 GM/DEXTROSE 50 ML IV SCH (20:24)
[2016-12-14] MEDS ORDERED: SODIUM CHLORIDE 0.9% 250 ML IV ONE (20:42)
[2016-12-14 23:30] VITALS: BP 142/72
[2016-12-15 01:33] LABS: GLUCOSE,POINT OF CARE 114 MG/DL (70-110)
[2016-12-15 05:13] VITALS: BP 143/85
[2016-12-15 06:18] LABS: GLUCOSE,POINT OF CARE 137 MG/DL (70-110)
[2016-12-15 06:35] LABS: BASOPHILS % (AUTO) 0.7 % (0.0-2.0); EOSINOPHILS % (AUTO) 3.6 % (1.0-6.0); HEMATOCRIT 36.1 % (36-46); HEMOGLOBIN 11.7 g/dL (12.0-16.0); LYMPHOCYTES # (AUTO) 3.3 K/uL (1.0-4.8); LYMPHOCYTES % (AUTO) 34.3 % (22.0-44.0); MEAN CORPUSCULAR HGB CONC 32.4 G/dL (31.0-37.0); MEAN CORPUSCULAR VOLUME 83 fL (80-100); MONOCYTES # (AUTO) 0.6 K/uL (0.1-1.0); MONOCYTES % (AUTO) 6.1 % (2.0-9.0); NEUTROPHILS # (AUTO) 5.3 K/uL (1.8-7.7); NEUTROPHILS % (AUTO) 55.3 % (40.0-70.0); PLATELET COUNT (AUTO) 261 K/uL (150-450); RED BLOOD CELL COUNT(AUTO) 4.33 MIL/uL (4.00-5.20); RED CELL DISTRIBUTION WIDTH 13.5 % (11.5-14.5); WHITE BLOOD COUNT (AUTO) 9.6 K/uL (4.5-11.0)
[2016-12-15 06:54] LABS: CALCIUM, TOTAL 8.6 mg/dL (8.8-10.5); CREATININE 1.44 mg/dL (0.60-1.30); POTASSIUM 4.4 mmol/L (3.5-5.1)
[2016-12-15 07:02] VITALS: BP 157/79
[2016-12-15] MEDS: ASPIRIN 81 MG CHEWABLE TABLET PO SCH (07:55)
[2016-12-15] MEDS: HEPARIN SODIUM,PORCINE 5,000 UNITS/ML VIAL SQ SCH ×2 (07:55→20:23)
[2016-12-15] MEDS: PANTOPRAZOLE SODIUM 40 MG DR TABLET PO SCH (07:55)
[2016-12-15] MEDS: PredniSONE 5 MG TABLET PO SCH (07:56)
[2016-12-15] MEDS: TACROLIMUS ANHYDROUS 1 MG CAPSULE PO SCH ×2 (07:56→20:23)
[2016-12-15] MEDS: DOCUSATE SODIUM 100 MG CAPSULE PO SCH ×2 (07:56→20:23)
[2016-12-15] MEDS: LevETIRAcetam 250 MG TABLET PO SCH ×3 (07:56→20:23)
[2016-12-15] MEDS: ACETAMINOPHEN 325 MG TABLET PO PRN (08:43)
[2016-12-15 11:13] VITALS: BP 143/72
[2016-12-15] MEDS: INSULIN ASPART 100 UNITS/ML SQ PRN ×3 (11:48→20:39)
[2016-12-15] MEDS: OxyCODONE HCL/ACETAMINOPHEN 5-325 MG TABLET PO PRN ×2 (12:37→20:38)
[2016-12-15 16:03] VITALS: BP 127/62
[2016-12-15 20:12] VITALS: BP 139/75
[2016-12-15] MEDS: CefTRIAXone 1 GM/DEXTROSE 50 ML IV SCH (20:24)
[2016-12-15 20:59] LABS: GLUCOSE COMMENT 1 Received Meds; GLUCOSE,POINT OF CARE 220 MG/DL (70-110)
[2016-12-15 20:59] LABS: GLUCOSE,POINT OF CARE 204 MG/DL (70-110)
[2016-12-15 20:59] LABS: GLUCOSE COMMENT 1 Received Meds; GLUCOSE,POINT OF CARE 295 MG/DL (70-110)
[2016-12-15] MEDS: AZITHROMYCIN 500 MG/NS 250 ML IV SCH (21:41)
[2016-12-15 23:55] VITALS: BP 104/58
[2016-12-16 04:16] VITALS: BP 133/66
[2016-12-16] MEDS: INSULIN ASPART 100 UNITS/ML SQ PRN ×4 (06:10→20:05)
[2016-12-16 06:50] LABS: CALCIUM, TOTAL 8.3 mg/dL (8.8-10.5); CREATININE 1.53 mg/dL (0.60-1.30)
[2016-12-16 06:51] LABS: GLUCOSE,POINT OF CARE 169 MG/DL (70-110)
[2016-12-16 07:08] LABS: BASOPHILS % (AUTO) 0.6 % (0.0-2.0); EOSINOPHILS % (AUTO) 1.4 % (1.0-6.0); HEMATOCRIT 33.2 % (36-46); HEMOGLOBIN 10.7 g/dL (12.0-16.0); LYMPHOCYTES # (AUTO) 3.7 K/uL (1.0-4.8); LYMPHOCYTES % (AUTO) 43.6 % (22.0-44.0); MEAN CORPUSCULAR HEMOGLOBIN 26.9 pg (26.0-34.0); MEAN CORPUSCULAR HGB CONC 32.3 G/dL (31.0-37.0); MEAN CORPUSCULAR VOLUME 83 fL (80-100); MONOCYTES # (AUTO) 0.8 K/uL (0.1-1.0); NEUTROPHILS # (AUTO) 3.8 K/uL (1.8-7.7); NEUTROPHILS % (AUTO) 45.4 % (40.0-70.0); PLATELET COUNT (AUTO) 252 K/uL (150-450); RED BLOOD CELL COUNT(AUTO) 3.99 MIL/uL (4.00-5.20); RED CELL DISTRIBUTION WIDTH 13.6 % (11.5-14.5); WHITE BLOOD COUNT (AUTO) 8.5 K/uL (4.5-11.0)
[2016-12-16 07:37] VITALS: BP 135/72
[2016-12-16] MEDS: LevETIRAcetam 250 MG TABLET PO SCH ×3 (08:31→19:56)
[2016-12-16] MEDS: DOCUSATE SODIUM 100 MG CAPSULE PO SCH ×2 (08:31→19:56)
[2016-12-16] MEDS: TACROLIMUS ANHYDROUS 1 MG CAPSULE PO SCH ×2 (08:31→19:56)
[2016-12-16] MEDS: PredniSONE 5 MG TABLET PO SCH (08:31)
[2016-12-16] MEDS: OxyCODONE HCL/ACETAMINOPHEN 5-325 MG TABLET PO PRN ×2 (08:31→12:33)
[2016-12-16] MEDS: PANTOPRAZOLE SODIUM 40 MG DR TABLET PO SCH (08:31)
[2016-12-16] MEDS: ASPIRIN 81 MG CHEWABLE TABLET PO SCH (08:31)
[2016-12-16] MEDS: HEPARIN SODIUM,PORCINE 5,000 UNITS/ML VIAL SQ SCH ×2 (08:32→19:56)
[2016-12-16 11:07] VITALS: BP 135/54
[2016-12-16 12:08] LABS: GLUCOSE,POINT OF CARE 257 MG/DL (70-110)
[2016-12-16 16:45] VITALS: BP 136/73
[2016-12-16 17:47] LABS: GLUCOSE,POINT OF CARE 232 MG/DL (70-110)
[2016-12-16 19:52] VITALS: BP 129/74
[2016-12-16] MEDS: CefTRIAXone 1 GM/DEXTROSE 50 ML IV SCH (19:55)
[2016-12-16] MEDS: AZITHROMYCIN 500 MG/NS 250 ML IV SCH (21:07)
[2016-12-16 23:50] VITALS: BP 135/65
[2016-12-17 01:07] LABS: GLUCOSE,POINT OF CARE 203 MG/DL (70-110)
[2016-12-17 04:28] VITALS: BP 142/75
[2016-12-17] MEDS: INSULIN ASPART 100 UNITS/ML SQ PRN ×4 (05:40→19:55)
[2016-12-17] MEDS: OxyCODONE HCL/ACETAMINOPHEN 5-325 MG TABLET PO PRN ×2 (05:41→13:17)
[2016-12-17 06:38] LABS: GLUCOSE,POINT OF CARE 227 MG/DL (70-110)
[2016-12-17 07:34] LABS: BASOPHILS % (AUTO) 0.6 % (0.0-2.0); EOSINOPHILS % (AUTO) 1.9 % (1.0-6.0); HEMATOCRIT 36.6 % (36-46); HEMOGLOBIN 11.9 g/dL (12.0-16.0); LYMPHOCYTES # (AUTO) 3.6 K/uL (1.0-4.8); LYMPHOCYTES % (AUTO) 40.5 % (22.0-44.0); MEAN CORPUSCULAR HEMOGLOBIN 27.1 pg (26.0-34.0); MEAN CORPUSCULAR HGB CONC 32.6 G/dL (31.0-37.0); MEAN CORPUSCULAR VOLUME 83 fL (80-100); MONOCYTES # (AUTO) 0.7 K/uL (0.1-1.0); MONOCYTES % (AUTO) 8.3 % (2.0-9.0); NEUTROPHILS # (AUTO) 4.4 K/uL (1.8-7.7); NEUTROPHILS % (AUTO) 48.7 % (40.0-70.0); PLATELET COUNT (AUTO) 283 K/uL (150-450); RED BLOOD CELL COUNT(AUTO) 4.39 MIL/uL (4.00-5.20); RED CELL DISTRIBUTION WIDTH 13.8 % (11.5-14.5)
[2016-12-17 07:44] LABS: CALCIUM, TOTAL 9.1 mg/dL (8.8-10.5); CREATININE 1.59 mg/dL (0.60-1.30); POTASSIUM 5.5 mmol/L (3.5-5.1)
[2016-12-17 07:59] VITALS: BP 126/68
[2016-12-17] MEDS: TACROLIMUS ANHYDROUS 1 MG CAPSULE PO SCH ×2 (08:28→19:39)
[2016-12-17] MEDS: PredniSONE 5 MG TABLET PO SCH (08:28)
[2016-12-17] MEDS: DOCUSATE SODIUM 100 MG CAPSULE PO SCH ×2 (08:28→19:39)
[2016-12-17] MEDS: HEPARIN SODIUM,PORCINE 5,000 UNITS/ML VIAL SQ SCH ×2 (08:29→19:39)
[2016-12-17] MEDS: ASPIRIN 81 MG CHEWABLE TABLET PO SCH (08:29)
[2016-12-17] MEDS: LevETIRAcetam 250 MG TABLET PO SCH ×3 (08:29→20:14)
[2016-12-17] MEDS: PANTOPRAZOLE SODIUM 40 MG DR TABLET PO SCH (08:29)
[2016-12-17 11:36] VITALS: BP 141/69
[2016-12-17] MEDS: TraMADol HCL 50 MG TABLET PO SCH (17:08)
[2016-12-17 17:32] LABS: GLUCOSE,POINT OF CARE 247 MG/DL (70-110)
[2016-12-17 18:27] LABS: GLUCOSE,POINT OF CARE 364 MG/DL (70-110)
[2016-12-17 19:26] VITALS: BP 107/60
[2016-12-17] MEDS: CefTRIAXone 1 GM/DEXTROSE 50 ML IV SCH (19:40)
[2016-12-17] MEDS: TRAVOPROST-Z 0.004% 2.5 ML OPHTHALMIC SOLUTION OU SCH (19:41)
[2016-12-17] MEDS: BRIMONIDINE/TIMOLOL 0.2-0.5% 5 ML OPHTHALMIC SOLUTION OU SCH (19:41)
[2016-12-17 20:18] LABS: GLUCOSE,POINT OF CARE 286 MG/DL (70-110)
[2016-12-17] MEDS: AZITHROMYCIN 500 MG/NS 250 ML IV SCH (20:48)
[2016-12-18] VITALS (7 sets, daily range): BP systolic 118–154; BP diastolic 63–77
[2016-12-18] MEDS: INSULIN ASPART 100 UNITS/ML SQ PRN ×4 (06:04→20:37)
[2016-12-18 06:17] LABS: GLUCOSE,POINT OF CARE 217 MG/DL (70-110)
[2016-12-18] MEDS: HEPARIN SODIUM,PORCINE 5,000 UNITS/ML VIAL SQ SCH ×2 (08:08→20:06)
[2016-12-18] MEDS: TraMADol HCL 50 MG TABLET PO SCH ×4 (08:08→23:09)
[2016-12-18] MEDS: DOCUSATE SODIUM 100 MG CAPSULE PO SCH ×2 (08:08→20:00)
[2016-12-18] MEDS: ASPIRIN 81 MG CHEWABLE TABLET PO SCH (08:08)
[2016-12-18] MEDS: PredniSONE 5 MG TABLET PO SCH (08:09)
[2016-12-18] MEDS: TACROLIMUS ANHYDROUS 1 MG CAPSULE PO SCH ×2 (08:09→20:06)
[2016-12-18] MEDS: PANTOPRAZOLE SODIUM 40 MG DR TABLET PO SCH (08:09)
[2016-12-18] MEDS: LevETIRAcetam 250 MG TABLET PO SCH ×3 (08:09→20:06)
[2016-12-18] MEDS: BRIMONIDINE/TIMOLOL 0.2-0.5% 5 ML OPHTHALMIC SOLUTION OU SCH ×2 (08:09→20:05)
[2016-12-18 17:27] LABS: GLUCOSE,POINT OF CARE 237 MG/DL (70-110)
[2016-12-18 17:38] LABS: GLUCOSE,POINT OF CARE 260 MG/DL (70-110)
[2016-12-18] MEDS: TRAVOPROST-Z 0.004% 2.5 ML OPHTHALMIC SOLUTION OU SCH (20:05)
[2016-12-18] MEDS: CefTRIAXone 1 GM/DEXTROSE 50 ML IV SCH (20:06)
[2016-12-18 22:12] LABS: GLUCOSE,POINT OF CARE 299 MG/DL (70-110)
[2016-12-18] MEDS ORDERED: SODIUM CHLORIDE 0.9% 500 ML IV ONE (23:08)
[2016-12-18] MEDS: AZITHROMYCIN 500 MG/NS 250 ML IV SCH (23:09)
[2016-12-19 04:00] VITALS: BP 156/75
[2016-12-19] MEDS: INSULIN ASPART 100 UNITS/ML SQ PRN ×4 (05:55→20:41)
[2016-12-19 06:09] LABS: GLUCOSE,POINT OF CARE 248 MG/DL (70-110)
[2016-12-19 07:38] VITALS: BP 138/71
[2016-12-19] MEDS: TraMADol HCL 50 MG TABLET PO SCH ×2 (08:15→16:16)
[2016-12-19] MEDS: PANTOPRAZOLE SODIUM 40 MG DR TABLET PO SCH (08:15)
[2016-12-19] MEDS: DOCUSATE SODIUM 100 MG CAPSULE PO SCH ×2 (08:15→20:41)
[2016-12-19] MEDS: HEPARIN SODIUM,PORCINE 5,000 UNITS/ML VIAL SQ SCH ×2 (08:15→20:51)
[2016-12-19] MEDS: PredniSONE 5 MG TABLET PO SCH (08:16)
[2016-12-19] MEDS: LevETIRAcetam 250 MG TABLET PO SCH ×3 (08:16→20:41)
[2016-12-19] MEDS: ASPIRIN 81 MG CHEWABLE TABLET PO SCH (08:16)
[2016-12-19] MEDS: TACROLIMUS ANHYDROUS 1 MG CAPSULE PO SCH ×2 (08:16→20:41)
[2016-12-19] MEDS: BRIMONIDINE/TIMOLOL 0.2-0.5% 5 ML OPHTHALMIC SOLUTION OU SCH ×2 (08:16→20:42)
[2016-12-19] MEDS: OxyCODONE HCL/ACETAMINOPHEN 5-325 MG TABLET PO PRN (10:10)
[2016-12-19 11:26] VITALS: BP 126/64
[2016-12-19 12:08] LABS: GLUCOSE COMMENT 1 Received Meds; GLUCOSE,POINT OF CARE 390 MG/DL (70-110)
[2016-12-19 16:02] VITALS: BP 127/68
[2016-12-19 18:03] LABS: GLUCOSE COMMENT 1 Received Meds; GLUCOSE,POINT OF CARE 241 MG/DL (70-110)
[2016-12-19 19:39] VITALS: BP 131/62
[2016-12-19] MEDS: TRAVOPROST-Z 0.004% 2.5 ML OPHTHALMIC SOLUTION OU SCH (20:41)
[2016-12-19] MEDS: CefTRIAXone 1 GM/DEXTROSE 50 ML IV SCH (20:42)
[2016-12-19] MEDS: AZITHROMYCIN 500 MG/NS 250 ML IV SCH (22:31)
[2016-12-19 22:36] LABS: GLUCOSE COMMENT 1 Received Meds; GLUCOSE,POINT OF CARE 189 MG/DL (70-110)
[2016-12-19 23:25] VITALS: BP 116/54
[2016-12-20 03:57] VITALS: BP 130/76
[2016-12-20] MEDS: INSULIN ASPART 100 UNITS/ML SQ PRN ×3 (06:03→18:25)
[2016-12-20 06:27] LABS: GLUCOSE COMMENT 1 Received Meds; GLUCOSE,POINT OF CARE 197 MG/DL (70-110)
[2016-12-20 07:18] VITALS: BP 149/74
[2016-12-20] MEDS: HEPARIN SODIUM,PORCINE 5,000 UNITS/ML VIAL SQ SCH ×2 (09:01→20:13)
[2016-12-20] MEDS: BRIMONIDINE/TIMOLOL 0.2-0.5% 5 ML OPHTHALMIC SOLUTION OU SCH ×2 (09:02→20:13)
[2016-12-20] MEDS: TACROLIMUS ANHYDROUS 1 MG CAPSULE PO SCH ×2 (09:03→20:14)
[2016-12-20] MEDS: ASPIRIN 81 MG CHEWABLE TABLET PO SCH (09:03)
[2016-12-20] MEDS: DOCUSATE SODIUM 100 MG CAPSULE PO SCH ×2 (09:03→20:13)
[2016-12-20] MEDS: TraMADol HCL 50 MG TABLET PO SCH ×3 (09:03→18:03)
[2016-12-20] MEDS: PANTOPRAZOLE SODIUM 40 MG DR TABLET PO SCH (09:03)
[2016-12-20] MEDS: LevETIRAcetam 250 MG TABLET PO SCH ×3 (09:03→20:14)
[2016-12-20] MEDS: PredniSONE 5 MG TABLET PO SCH (09:04)
[2016-12-20 11:19] VITALS: BP 113/60
[2016-12-20 12:02] LABS: GLUCOSE COMMENT 1 Received Meds; GLUCOSE,POINT OF CARE 300 MG/DL (70-110)
[2016-12-20 15:50] VITALS: BP 148/64
[2016-12-20 18:48] LABS: GLUCOSE COMMENT 1 Received Meds; GLUCOSE,POINT OF CARE 355 MG/DL (70-110)
[2016-12-20] MEDS ORDERED: AMOX1TAB16 PO (19:33)
[2016-12-20 19:55] VITALS: BP 128/70
[2016-12-20] MEDS: TRAVOPROST-Z 0.004% 2.5 ML OPHTHALMIC SOLUTION OU SCH (20:13)
[2016-12-20 20:20] LABS: OVA AND PARASITES EXAM Final report
== END 2016-12-20 21:50 | disposition home or self-care (01) | DRG 871 ==
LOC: EMS 16:57 → 6N 18:28
PROVIDERS: ADMIT Internal Medicine; ATTEND Internal Medicine
DX: A41.9 Sepsis, unspecified organism (principal); E43 Unspecified severe protein-calorie malnutrition; I11.0 Hypertensive heart disease with heart failure; J18.9 Pneumonia, unspecified organism; I50.9 Heart failure, unspecified; E11.9 Type 2 diabetes mellitus without complications; M48.56XA Collapsed vertebra, not elsewhere classified, lumbar region, initial encounter for fracture; Z94.0 Kidney transplant status; E78.00 Pure hypercholesterolemia, unspecified; F32.9 Major depressive disorder, single episode, unspecified; R53.81 Other malaise; Z88.8 Allergy status to other drugs, medicaments and biological substances; Z79.82 Long term (current) use of aspirin; Z79.4 Long term (current) use of insulin; Z68.22 Body mass index [BMI] 22.0-22.9, adult
CPT/HCPCS: 72131; 72146; 72148; 73521; 82306; 82962; 83605; 84145; 85379; 87040; 87081; 87177; 87324; 87449; 90471; 93005; 96360; 97110; 97162; 97530; 99285; J0456; J0696; J1644; J7040; J7050; J7507